=== PATIENT | female | born 1950 | race Caucasian/White ===

== ENCOUNTER 2017-03-18 18:00 | Outpatient (CLI) | payer MEDICARE | END 2017-03-18 18:01 | disposition home or self-care (01) | DX: R68.89 Other general symptoms and signs (principal) ==

== ENCOUNTER 2017-05-01 11:03 | Outpatient (CLI) | payer MEDICARE ==
--- NOTE | 2017-05-06 17:19 | Mammography Report ---
DIGITAL SCREENING MAMMOGRAM: 05/01/2017 CLINICAL INDICATION: A 66-year-old nulliparous patient, for screening. COMPARISON: 12/2015, 11/2014, 11/2013, 10/2012, 09/2011, 08/2010, 08/2009, 05/2008, 04/2007. TECHNIQUE: Routine CC and MLO projections were obtained of the breasts. Bilateral laterally exaggera marlon craniocaudal views. FINDINGS: The breasts again demonstrate heterogeneously dense fibroglandular parenchyma bilaterally. Coarse and punctate, typically benign calcifications are present. No suspicious masses, clustered mi crocalcifications, or regions of architectural distortion are identified. IMPRESSION: BENIGN FINDINGS. RECOMMENDATION: ROUTINE ANNUAL SCREENING UNLESS OTHERWISE CLINICALLY INDICATED. BIRADS CATEGORY 2-BENIGN FINDINGS. STANDARD QUALIFYING STATEMENTS 1. This examination was reviewed with the aid of Computer-Aided Detection (CAD). 2. A negative or benign imaging report should not delay biopsy if clinically suspicious findings are present. Consider surgical consultation if warranted. More than 5% of cancers are not identified by i maging. 3. Dense breasts may obscure an underlying neoplasm. JOB #: [id number] EXT JOB #:[id number]
== END 2017-05-01 11:04 | disposition home or self-care (01) ==
LOC: DI.N 11:03
PROVIDERS: ATTEND Physician Assistant Medical
DX: Z12.31 Encounter for screening mammogram for malignant neoplasm of breast (principal)
CPT/HCPCS: 77067

== ENCOUNTER 2017-05-20 08:00 | Outpatient (CLI) | payer MEDICARE ==
[2017-05-20 13:31] LABS: BASOPHILS % (AUTO) 0.6 %; EOSINOPHILS # (AUTO) 0.1 10^3/uL (0.0-0.7); EOSINOPHILS % (AUTO) 1.6 %; LYMPHOCYTES # (AUTO) 2.2 10^3/uL (1.5-3.5); MEAN CORPUSCULAR HEMOGLOBIN 32.1 pg (27.0-31.0); MEAN CORPUSCULAR HGB CONC 33.5 g/dL (32.0-36.0); MEAN CORPUSCULAR VOLUME 95.9 fL (81.0-99.0); MEAN PLATELET VOLUME 8.3 fL (7.9-10.8); MONOCYTES # (AUTO) 0.3 10^3/uL (0.0-1.0); MONOCYTES % (AUTO) 7.6 %; NEUTROPHILS # (AUTO) 1.6 10^3/uL (1.5-6.6); NEUTROPHILS % (AUTO) 38.2 %; NUCLEATED RED BLOOD CELLS AUTO 0.1 /100WBC; RED BLOOD COUNT 4.38 10^6/uL (4.20-5.40); RED CELL DISTRIBUTION WIDTH 12.2 % (12.0-15.0); UNCORRECTED WHITE BLOOD COUNT 4.3 x10^3/uL; WHITE BLOOD COUNT 4.3 x10^3/uL (4.8-10.8)
[2017-05-20 13:33] LABS: ALBUMIN/GLOBULIN RATIO 1.6 (1.0-2.2); BILIRUBIN,TOTAL 1.1 mg/dL (0.2-1.0); BUN - BLOOD UREA NITROGEN 16 mg/dL (6-20); CALCIUM 9.4 mg/dL (8.5-10.3); CARBON DIOXIDE - CO2 28 mmol/L (21-32); CHLORIDE 102 mmol/L (101-111); CHOLESTEROL 212 mg/dL; CREATININE 0.8 mg/dL (0.4-1.0); GFR - MDRD 71 (>89); GLUCOSE 92 mg/dL (70-100); HDL CHOLESTEROL 106 mg/dL; LDL/HDL RATIO 0.9 (<4.4); POTASSIUM 4.2 mmol/L (3.5-5.0); SODIUM 139 mmol/L (135-145); TOTAL PROTEIN 7.2 g/dL (6.7-8.2); TRIGLYCERIDES 69 mg/dL; VLDL CHOLESTEROL 14 mg/dL
== END 2017-05-20 08:01 | disposition home or self-care (01) ==
LOC: LAB.WCP 08:00
PROVIDERS: ATTEND Physician Assistant Medical
DX: Z00.00 Encounter for general adult medical examination without abnormal findings (principal); J30.9 Allergic rhinitis, unspecified
CPT/HCPCS: 36415; 80053; 80061; 85025

== ENCOUNTER 2017-10-08 09:12 | Outpatient (CLI) | payer MEDICARE ==
--- NOTE | 2017-10-08 11:39 | XRAY Report ---
BILATERAL HIPS AND PELVIS: 10/08/2017 CLINICAL INDICATION: Bilateral hip pain. FINDINGS: Frontal view of the hips and pelvis and bilateral frogleg lateral views of the hips demons trate mild bilateral osteoarthritis. There is no evidence of acute fracture or dislocation. No radi opaque foreign body is seen in the soft tissues. IMPRESSION: MILD BILATERAL HIP OSTEOARTHRITIS. JOB #: [id number] EXT JOB #:[id number]
--- NOTE | 2017-10-08 11:40 | XRAY Report ---
COMPLETE LUMBAR SPINE: 10/08/2017 CLINICAL INDICATION: Chronic low back pain. FINDINGS: AP, lateral, oblique, coned-down views of the lumbar spine demonstrate moderate degenerati ve disc and facet disease, with minimal degenerative anterolisthesis of L4 on L5. There is no eviden ce of compression fracture. The bowel gas pattern is normal. IMPRESSION: MODERATE DEGENERATIVE CHANGES. JOB #: [id number] EXT JOB #:[id number]
== END 2017-10-08 09:13 | disposition home or self-care (01) ==
LOC: DI.N 09:12
PROVIDERS: ATTEND Physician Assistant Medical
DX: M51.36 Other intervertebral disc degeneration, lumbar region (principal); M47.896 Other spondylosis, lumbar region; M43.16 Spondylolisthesis, lumbar region; M16.0 Bilateral primary osteoarthritis of hip
CPT/HCPCS: 72110; 73522

== ENCOUNTER 2018-01-22 10:10 | Outpatient (CLI) | payer MEDICARE ==
--- NOTE | 2018-01-22 15:36 | DEXA Report ---
DEXA SCAN: 01/22/2018 CLINICAL INDICATION: Postmenopausal. TECHNIQUE: Dual energy x-ray absorptiometry (DXA) was performed on a [email or web address] system. Regions measured are the AP spine, femoral neck, and, if needed, forearm. COMPARISON: None. In accordance with the International Society for Clinical Densitometry (ISCD) guidelines, data from previous exams may be reanalyzed using current recommendations and techniques. This is done to allow a more accurate basis for comparison with the current study. FINDINGS The data for the lumbar spine is as follows: REGION BMD (g/cm/cm) T-SCORE Z-SCORE L1 0.979 -1.3 0.3 L2 0.959 -2.0 -0.4 L3 0.951 -2.1 -0.5 L4 1.042 -1.3 0.3 L2-L4 0.987 -1.8 -0.2 NOTE: All evaluable vertebrae are used for classification. The data for the hip is as follows: REGION BMD (g/cm/cm) T-SCORE Z-SCORE Neck 0.800 -1.7 -0.1 TOTAL 0.848 -1.3 0.1 NOTE: The femoral neck or total proximal femur, whichever is lowest, is used for classification. IMPRESSION THE WHO CLASSIFICATION BASED ON THE INTERNATIONAL REFERENCE STANDARD IS OSTEOPENIA. THE FRACTURE RISK IS INCREASED. RECOMMENDATION: Patients with diagnosis of osteoporosis or osteopenia should have regular bone mineral density assessment. For those eligible for Medicare, routine testing is allowed once every 2 years. Testing frequency can be increased for patients who have rapidly progressing disease or for those who are receiving medical therapy to restore bone mass. COMMENT World Health Organization (WHO) definitions for osteoporosis and osteopenia: NORMAL BMD: T-score at 1.0 or higher, fracture risk is low. OSTEOPENIA BMD: T-score between 1.0 and -2.5, fracture risk is increased. OSTEOPOROSIS BMD: T-score at 2.5 or lower, fracture risk high. National Osteoporosis Foundation recommends: 1. Obtain adequate dietary calcium (at least 1200 mg per day) and vitamin D (400 -800 international units per day). 2. Participate, as appropriate, in regular weightbearing and muscle- strengthening exercise. 3. Avoid tobacco use and reduce alcohol and caffeine intake. 4. For more detailed information see the website at www.NOF.org. TD: 01/22/2018 12:08 JARED
== END 2018-01-22 10:11 | disposition home or self-care (01) ==
LOC: DI 10:10
PROVIDERS: ATTEND Physician Assistant Medical
DX: M85.89 Other specified disorders of bone density and structure, multiple sites (principal)
CPT/HCPCS: 77080

== ENCOUNTER 2018-05-13 17:00 | Outpatient (CLI) | payer MEDICARE | END 2018-05-13 17:01 | disposition home or self-care (01) | LOC: LAB.R 17:00 | PROVIDERS: ATTEND Family Medicine | DX: R35.0 Frequency of micturition (principal); N76.0 Acute vaginitis | CPT/HCPCS: 87086; 87480; 87510; 87660 ==

== ENCOUNTER 2018-05-28 11:00 | Outpatient (CLI) | payer MEDICARE ==
[2018-05-28 18:50] LABS: BASOPHILS % (AUTO) 0.7 %; EOSINOPHILS % (AUTO) 1.3 %; HGB - HEMOGLOBIN 13.4 g/dL (12.0-16.0); LYMPHOCYTES # (AUTO) 1.9 10^3/uL (1.5-3.5); LYMPHOCYTES % (AUTO) 53.4 %; MEAN CORPUSCULAR HGB CONC 33.4 g/dL (32.0-36.0); MEAN CORPUSCULAR VOLUME 98.9 fL (81.0-99.0); MEAN PLATELET VOLUME 8.4 fL (7.9-10.8); MONOCYTES # (AUTO) 0.3 10^3/uL (0.0-1.0); MONOCYTES % (AUTO) 8.1 %; NEUTROPHILS # (AUTO) 1.3 10^3/uL (1.5-6.6); NEUTROPHILS % (AUTO) 36.5 %; PLT - PLATELET COUNT 193 10^3/uL (130-450); RED BLOOD COUNT 4.05 10^6/uL (4.20-5.40); RED CELL DISTRIBUTION WIDTH 13.5 % (12.0-15.0); WHITE BLOOD COUNT 3.6 x10^3/uL (4.8-10.8)
[2018-05-28 19:11] LABS: ALBUMIN 3.8 g/dL (3.2-5.5); ALBUMIN/GLOBULIN RATIO 1.2 (1.0-2.2); ALKALINE PHOSPHATASE 58 IU/L (42-121); ALT ALANINE AMINOTRANSFERASE 26 IU/L (10-60); AST ASPARTATE AMINOTRANSFERASE 22 IU/L (10-42); BILIRUBIN,TOTAL 0.7 mg/dL (0.2-1.0); BUN - BLOOD UREA NITROGEN 15 mg/dL (6-20); CALCIUM 9.6 mg/dL (8.5-10.3); CARBON DIOXIDE - CO2 26 mmol/L (21-32); CHLORIDE 103 mmol/L (101-111); CHOL/HDL RATIO 1.5 (<4.4); CHOLESTEROL 167 mg/dL; CREATININE 0.6 mg/dL (0.4-1.0); GFR - MDRD 99 (>89); GLUCOSE 98 mg/dL (70-100); HDL CHOLESTEROL 109 mg/dL; LDL CHOLESTEROL,CALCULATED 48 mg/dL; LDL/HDL RATIO 0.4 (<4.4); SODIUM 137 mmol/L (135-145); TOTAL PROTEIN 6.9 g/dL (6.7-8.2); VLDL CHOLESTEROL 10 mg/dL
== END 2018-05-28 11:01 | disposition home or self-care (01) ==
LOC: LAB.WCP 11:00
PROVIDERS: ATTEND Family Medicine
DX: R03.0 Elevated blood-pressure reading, without diagnosis of hypertension (principal); E78.5 Hyperlipidemia, unspecified; Z13.29 Encounter for screening for other suspected endocrine disorder
CPT/HCPCS: 36415; 80053; 80061; 83721; 84443; 85025

== ENCOUNTER 2018-05-31 17:30 | Emergency (ER) | payer MEDICARE ==
[2018-05-31 18:09] LABS: BILIRUBIN,URINE NEGATIVE (NEGATIVE); GLUCOSE, URINE (UA) NEGATIVE (NEGATIVE); KETONES,URINE (UA) 15 mg/dL (NEGATIVE); LEUKOCYTE ESTERASE, URINE TRACE (NEGATIVE); NITRITE,URINE NEGATIVE (NEGATIVE); OCCULT BLOOD,URINE NEGATIVE (NEGATIVE); PH,URINE 8.5 PH (5.0-7.5); PROTEIN,URINE NEGATIVE (NEGATIVE); UROBILINOGEN,URINE 0.2 (NORMAL) E.U./dL (NORMAL)
[2018-05-31 18:11] LABS: CLARITY,URINE CLEAR (CLEAR)
[2018-05-31 18:12] LABS: BACTERIA,URINE None Seen /HPF (None Seen); RBC,URINE None Seen /HPF (0-5); SQUAMOUS EPITHELIAL CELL,UR RARE Squamous (<= Few)
[2018-05-31] MEDS ORDERED: SODIUM CHLORIDE 0.9% 1,000 ML IV ONE (19:27)
[2018-05-31 19:31] VITALS: BP 129/82
[2018-05-31 19:37] LABS: BASOPHILS % (AUTO) 0.4 %; EOSINOPHILS % (AUTO) 0.5 %; HGB - HEMOGLOBIN 13.5 g/dL (12.0-16.0); LYMPHOCYTES # (AUTO) 0.2 10^3/uL (1.5-3.5); LYMPHOCYTES % (AUTO) 2.5 %; MEAN CORPUSCULAR HEMOGLOBIN 32.4 pg (27.0-31.0); MEAN CORPUSCULAR HGB CONC 33.4 g/dL (32.0-36.0); MEAN CORPUSCULAR VOLUME 97.2 fL (81.0-99.0); MEAN PLATELET VOLUME 7.2 fL (7.9-10.8); MONOCYTES # (AUTO) 0.3 10^3/uL (0.0-1.0); MONOCYTES % (AUTO) 4.2 %; NEUTROPHILS # (AUTO) 6.6 10^3/uL (1.5-6.6); NEUTROPHILS % (AUTO) 92.4 %; PLT - PLATELET COUNT 189 10^3/uL (130-450); RED BLOOD COUNT 4.17 10^6/uL (4.20-5.40); RED CELL DISTRIBUTION WIDTH 12.9 % (12.0-15.0); WHITE BLOOD COUNT 7.2 x10^3/uL (4.8-10.8)
--- NOTE | 2018-05-31 19:39 | ED Physician Documentation ---
History of Present Illness - Stated complaint Stated Complaint: WEAKNESS AND TREMORS - Chief complaint Chief Complaint: General - History obtained from History obtained from: Patient, Family - History of Present Illness Timing: Chronic - Additonal information Additional information: Patient is a 68 year old female with a history of essential tremor who is presenting to the emergency department for generalized weakness and worsening tremor. Patient states that her symptoms come and go and tend to be worse on the right. states that the she felt ok two days ago and was normal but today she seemed worse. Patient has not been diagnosed with parkinsons at this point. Review of Systems Constitutional: denies: Fever, Chills Eyes: denies: Loss of vision, Photophobia Ears: reports: Reviewed and negative Cardiac: denies: Chest pain / pressure GI: denies: Nausea, Vomiting Musculoskeletal: denies: Extremity pain Neurologic: reports: Generalized weakness, Focal weakness. denies: Numbness, Difficulty speaking, Syncope, Seizure Immunocompromised: denies: Immunocompromised PD PAST MEDICAL HISTORY - Past Medical History Cardiovascular: None Respiratory: None Endocrine/Autoimmune: None GI: GERD, Colon polyps : None HEENT: None Psych: None Musculoskeletal: Osteoarthritis Derm: None - Past Surgical History Past Surgical History: Yes - Present Medications Home Medications: Ambulatory Orders Medication Instructions Recorded Confirmed Ascorbic Acid [Vitamin C] 2,000 mg PO DAILY 07/23/16 07/23/16 Aspirin [Aspir-Low] 81 mg PO DAILY 07/23/16 07/23/16 Calcium Carbonate 500 mg PO BID 07/23/16 07/23/16 Multivitamin [Theragran] 1 tab PO DAILY 07/23/16 07/23/16 Naproxen Sodium [All Day Pain 220 mg PO .ASDIRECTED 07/23/16 07/23/16 Relief] [place]-3/Dha/Epa/Fish Oil [Fish Oil 1,000 mg PO BID 07/23/16 07/23/16 Conc 1,000 mg Softgel] Vit A/C/E AC/Znox/Cupric Oxide 1 tab PO DAILY 07/23/16 07/23/16 [Eye Vitamin-Minerals Tablet] - Allergies Allergies/Adverse Reactions: Allergies Allergy/AdvReac Type Severity Reaction Status Date / Time Sulfa (Sulfonamide Allergy Hives Verified 05/31/18 17:40 Antibiotics) - Social History Does the pt smoke?: No Smoking Status: Never smoker Does the pt drink ETOH?: No Does the pt have substance abuse?: No - Immunizations Immunizations are current?: Yes - POLST Patient has POLST: No PD ED PE NORMAL - Vitals Vital signs reviewed: Yes - General General: Alert and oriented X 3 - HEENT HEENT: Atraumatic - Cardiac Cardiac: RRR - Respiratory Respiratory: No respiratory distress - Derm Derm: Normal color - Extremities Extremities: No deformity PD ED PE EXPANDED - Neuro Neuro: Alert and Oriented X 3, Normal motor, Normal Speech, Normal finger nose ( normal on the left and slightly worse on the right ), Other (5/5 upper and lower extremity bilaterally, but slightly weaker on the right) Results - Vitals Vitals: Vital Signs - 24 hr 05/31/18 05/31/18 05/31/18 17:38 19:29 20:51 Temperature 37.1 C Heart Rate 78 78 70 Respiratory 18 16 16 Rate Blood Pressure 127/62 129/82 H O2 Saturation 97 96 98 Oxygen O2 Source Room air - Labs Labs: Laboratory Tests 05/31/18 05/31/18 05/31/18 18:00 19:34 19:34 WBC 7.2 RBC 4.17 L Hgb 13.5 Hct 40.6 MCV 97.2 MCH 32.4 H MCHC 33.4 RDW 12.9 Plt Count 189 MPV 7.2 L Neut # (Auto) 6.6 Lymph # (Auto) 0.2 L [place] # (Auto) 0.3 Eos # (Auto) 0.0 Baso # (Auto) 0.0 Absolute Nucleated RBC 0.00 Nucleated RBC % 0.0 Sodium 134 L Potassium 3.7 Chloride 101 Carbon Dioxide 25 Anion Gap 8.0 BUN 13 Creatinine 0.7 Estimated GFR (MDRD) 83 L Glucose 126 H Calcium 9.0 Phosphorus 2.6 Magnesium 1.6 L Total Bilirubin 0.8 AST 17 ALT 22 Alkaline Phosphatase 59 Total Protein 6.6 L Albumin 3.7 Globulin 2.9 Albumin/Globulin Ratio 1.3 Lipase 23 Urine Color YELLOW Urine Clarity CLEAR Urine pH 8.5 H Ur Specific [place] 1.015 Urine Protein NEGATIVE Urine Glucose (UA) NEGATIVE Urine Ketones 15 H Urine Occult Blood NEGATIVE Urine Nitrite NEGATIVE Urine Bilirubin NEGATIVE Urine Urobilinogen 0.2 (NORMAL) Ur Leukocyte Esterase TRACE H Urine RBC None Seen Urine WBC 0-3 Ur Squamous Epith Cells RARE Squamous Urine Bacteria None Seen Ur Microscopic Review INDICATED Urine Culture Comments INDICATED - Rads (name of study) ct head Radiology: Final report received (no acute abnormalities, see full report) PD MEDICAL DECISION MAKING - ED course Complexity details: reviewed old records, reviewed results, re-evaluated patient , considered differential, d/w patient ED course: patient was seen and examined at bedside. labs were drawn and urine was collected. Imaging was ordered. when patient returned the results were reviewed. there were no acute abnormalities appreciated. while patient would likely benefit from MRI, it was not emergent at this time. patient and family were made aware of the findings and were stable for discharge with outpatient follow up. - Sepsis Event Vital Signs: Vital Signs - 24 hr 05/31/18 05/31/18 05/31/18 17:38 19:29 20:51 Temperature 37.1 C Heart Rate 78 78 70 Respiratory 18 16 16 Rate Blood Pressure 127/62 129/82 H O2 Saturation 97 96 98 Oxygen O2 Source Room air Departure - Departure Disposition: 01 Home, Self Care Clinical Impression: Generalized muscle ache Condition: Good Instructions: ED Fall Dizziness Weakn Balance Follow-Up: Nola Elkins PA-C [Primary Care Provider] - Tomorrow Comments: Your diagnostics today were within normal limits. There is no acute abnormalities on your blood work. you should follow up with your doctor tomorrow and schedule a follow up MRI. You may return to the emergency department at any time for new, worsening or uncontrollable symptoms. Discharge Date/Time: 05/31/18 20:54
--- NOTE | 2018-05-31 19:52 | CT Report ---
Procedure Date: 05/31/2018 Accession Number: [id number] / [id number] Procedure: CT - Head W/O CPT Code: FULL RESULT: EXAM: CT HEAD EXAM DATE: 05/31/2018 07:08 PM. CLINICAL HISTORY: Right sided weakness. COMPARISON: 07/17/2008 10:42 AM. TECHNIQUE: Multiaxial CT images were obtained from the foramen magnum to the vertex. Reformats: Coronal. IV contrast: None. In accordance with CT protocol optimization, one or more of the following dose reduction techniques were utilized for this exam: automated exposure control, adjustment of mA and/or KV based on patient size, or use of iterative reconstructive technique. FINDINGS: Parenchyma: No intraparenchymal hemorrhage. No evidence of mass, midline shift or CT findings of acute infarction. Batista-white differentiation is distinct. Diffuse mild chronic microangiopathic white matter changes are evident. Extraaxial Spaces: Normal for age. No subdural or epidural collections identified. Ventricles: The ventricles and cortical sulci are enlarged, consistent with age-related tissue loss. Sinuses: Imaged paranasal sinuses, orbits, and mastoids show no significant abnormality. Bones: No evidence of fracture or calvarial defect. Other: None. IMPRESSION: Mild senescent changes without evidence of acute intracranial abnormality. RADIA
[2018-05-31 19:53] LABS: ALBUMIN 3.7 g/dL (3.2-5.5); ALBUMIN/GLOBULIN RATIO 1.3 (1.0-2.2); BILIRUBIN,TOTAL 0.8 mg/dL (0.2-1.0); CREATININE 0.7 mg/dL (0.4-1.0); MAGNESIUM 1.6 mg/dL (1.7-2.8); PHOSPHORUS 2.6 mg/dL (2.5-4.6); TOTAL PROTEIN 6.6 g/dL (6.7-8.2)
== END 2018-05-31 20:54 | disposition home or self-care (01) ==
LOC: ED 17:30
DX: M79.1 Myalgia (principal)
CPT/HCPCS: 36415; 70450; 80053; 81001; 81003; 83690; 83735; 84100; 85025; 87086; 99283; 99284

== ENCOUNTER 2018-06-01 05:55 | Outpatient (CLI) | payer MEDICARE | END 2018-06-01 05:56 | disposition critical access hospital (66) | LOC: EMS 05:55 | PROVIDERS: ATTEND Surgery | DX: R53.1 Weakness (principal); R50.9 Fever, unspecified | CPT/HCPCS: A0425; A0429 ==

== ENCOUNTER 2018-06-01 06:11 | Emergency (ER) | payer MEDICARE ==
--- NOTE | 2018-06-01 07:10 | ED Physician Documentation ---
History of Present Illness - Stated complaint Stated Complaint: WEAKNESS - Chief complaint Chief Complaint: Neuro - History obtained from History obtained from: Patient, Family - History of Present Illness Timing: How many days ago (5) - Additonal information Additional information: 68-year-old female with a 6 month history of slowly increasing weakness has developed a saultatory increase in her weakness. She collapsed in the bathroom and was not able to get up yesterday. This morning she is having a hard time getting out of bed. She has had a recent UTI, was on some macrobid for 7 days and has changed to metornidazole. She has broken out in a rash over her legs and arms consistent with a drug eruption. She has an essential tremor for the past year and has been on propranalol. She has a family history of Parkinsons in her uncle and cousin. Review of Systems Constitutional: reports: Fever Eyes: denies: Decreased vision Ears: denies: Ear pain Nose: denies: Rhinorrhea / runny nose, Congestion Throat: denies: Sore throat Cardiac: denies: Chest pain / pressure, Palpitations Respiratory: denies: Dyspnea, Cough GI: reports: Constipation. denies: Abdominal Pain, Nausea, Vomiting : denies: Dysuria, Frequency Skin: denies: Rash Musculoskeletal: denies: Neck pain, Back pain, Extremity pain Neurologic: reports: Generalized weakness. denies: Focal weakness, Numbness, Difficulty speaking, Confused, Altered mental status, Headache, Head injury, LOC PD PAST MEDICAL HISTORY - Past Medical History Past Medical History: Yes Cardiovascular: None Respiratory: None Neuro: None Endocrine/Autoimmune: None GI: GERD, Colon polyps : None HEENT: None Psych: None Musculoskeletal: Osteoarthritis Derm: None - Past Surgical History Past Surgical History: Yes - Present Medications Home Medications: Ambulatory Orders Medication Instructions Recorded Confirmed Ascorbic Acid [Vitamin C] 2,000 mg PO DAILY 07/23/16 07/23/16 Aspirin [Aspir-Low] 81 mg PO DAILY 07/23/16 07/23/16 Calcium Carbonate 500 mg PO BID 07/23/16 07/23/16 Multivitamin [Theragran] 1 tab PO DAILY 07/23/16 07/23/16 Naproxen Sodium [All Day Pain 220 mg PO .ASDIRECTED 07/23/16 07/23/16 Relief] [place]-3/Dha/Epa/Fish Oil [Fish Oil 1,000 mg PO BID 07/23/16 07/23/16 Conc 1,000 mg Softgel] Vit A/C/E AC/Znox/Cupric Oxide 1 tab PO DAILY 07/23/16 07/23/16 [Eye Vitamin-Minerals Tablet] Carbidopa/Levodopa 25/100 [Sinemet 0.5 tab PO TID #30 tablet 06/01/18 25 mg/100 mg] Ciprofloxacin HCl [Cipro] 500 mg PO BID #14 tablet 06/01/18 - Allergies Allergies/Adverse Reactions: Allergies Allergy/AdvReac Type Severity Reaction Status Date / Time Sulfa (Sulfonamide Allergy Hives Verified 06/01/18 06:17 Antibiotics) - Social History Does the pt smoke?: No Smoking Status: Never smoker Does the pt drink ETOH?: No Does the pt have substance abuse?: No - Immunizations Immunizations are current?: Yes - POLST Patient has POLST: No PD ED PE NORMAL - Vitals Vital signs reviewed: Yes (normal ) - General General: Alert and oriented X 3, No acute distress, Well developed/nourished, Other (pleasant 68 y/o female in no distress. There is a slight delay in execution of motor commands) - HEENT HEENT: Atraumatic, PERRL, EOMI, Ears normal, Moist mucous membranes, Pharynx benign, Dentition benign - Neck Neck: Supple, no meningeal sign, No bony TTP - Cardiac Cardiac: RRR, No murmur - Respiratory Respiratory: No respiratory distress, Clear bilaterally - Abdomen Abdomen: Soft, Non tender - Back Back: No CVA TTP, No spinal TTP - Derm Derm: Normal color, Warm and dry, Other (There is a fine raised papular rash over the legs and arms. Looks like a drug eruption. ) - Extremities Extremities: No deformity, Normal ROM s pain, No edema - Neuro Neuro: Alert and oriented X 3, emr analyst 2-12 intact, No motor deficit, No sensory deficit, Normal speech Eye Opening: Spontaneous Motor: Obeys Commands Verbal: Oriented GCS Score: 15 - Psych Psych: Normal mood, Normal affect Results - Vitals Vitals: Vital Signs - 24 hr 06/01/18 06/01/18 06/01/18 06:13 06:41 07:27 Temperature 36.8 C 37.3 C Heart Rate 63 69 68 Respiratory 15 16 15 Rate Blood Pressure 112/68 115/64 104/61 O2 Saturation 92 95 96 06/01/18 06/01/18 06/01/18 08:00 11:00 12:19 Temperature 36.4 C L Heart Rate 67 68 68 Respiratory 15 15 Rate Blood Pressure 103/64 110/64 96/58 L O2 Saturation 97 94 97 Oxygen O2 Source Room air - EKG (time done) 0653 Rate: Rate (enter#) (70) Rhythm: NSR Ischemia: Normal ST segments Compare to prior EKG: Old EKG unavailable Computer interpretation: Agree with computer - Labs Labs: Laboratory Tests 06/01/18 06/01/18 06/01/18 07:05 07:05 07:05 WBC 6.2 RBC 3.96 L Hgb 13.0 Hct 38.0 MCV 96.1 MCH 33.0 H MCHC 34.3 RDW 12.8 Plt Count 172 MPV 7.7 L Neut # (Auto) 5.6 Lymph # (Auto) 0.3 L Kay # (Auto) 0.3 Eos # (Auto) 0.1 Baso # (Auto) 0.0 Absolute Nucleated RBC 0.00 Nucleated RBC % 0.0 Sodium 135 Potassium 3.5 Chloride 105 Carbon Dioxide 23 Anion Gap 7.0 BUN 11 Creatinine 0.6 Estimated GFR (MDRD) 99 Glucose 121 H Calcium 8.7 Magnesium 1.7 Total Bilirubin 0.7 AST 19 ALT 20 Alkaline Phosphatase 56 Total Creatine Kinase 214 Troponin I < 0.04 Total Protein 6.4 L Albumin 3.3 Globulin 3.1 Albumin/Globulin Ratio 1.1 Lipase 22 Urine Color Urine Clarity Urine pH Ur Specific [place] Urine Protein Urine Glucose (UA) Urine Ketones Urine Occult Blood Urine Nitrite Urine Bilirubin Urine Urobilinogen Ur Leukocyte Esterase Urine RBC Urine WBC Urine WBC Clumps Ur Epithelial Cells Ur Squamous Epith Cells Urine Bacteria Urine Mucus Ur Microscopic Review Urine Culture Comments 06/01/18 07:47 WBC RBC Hgb Hct MCV MCH MCHC RDW Plt Count MPV Neut # (Auto) Lymph # (Auto) Kay # (Auto) Eos # (Auto) Baso # (Auto) Absolute Nucleated RBC Nucleated RBC % Sodium Potassium Chloride Carbon Dioxide Anion Gap BUN Creatinine Estimated GFR (MDRD) Glucose Calcium Magnesium Total Bilirubin AST ALT Alkaline Phosphatase Total Creatine Kinase Troponin I Total Protein Albumin Globulin Albumin/Globulin Ratio Lipase Urine Color YELLOW Urine Clarity CLEAR Urine pH 6.0 Ur Specific [place] 1.025 Urine Protein NEGATIVE Urine Glucose (UA) NEGATIVE Urine Ketones 15 H Urine Occult Blood TRACE-INTA Urine Nitrite NEGATIVE Urine Bilirubin NEGATIVE Urine Urobilinogen 0.2 (NORMAL) Ur Leukocyte Esterase TRACE H Urine RBC 0-5 Urine WBC >25 H Urine WBC Clumps PRESENT Ur Epithelial Cells FEW Transitional Ur Squamous Epith Cells NONE SEEN Urine Bacteria Rare Urine Mucus Marked Strands Ur Microscopic Review INDICATED Urine Culture Comments INDICATED - Rads (name of study) 2 veiw chest Radiology: Prelim report reviewed (Impression: Bibasilar atelectasis or scarring. COPD), EMP read indepedently, See rad report Procedures - IVC sono (time) 0740 Bedside IVC sono: IVC measures (cm) (1.49), Euvolemia PD MEDICAL DECISION MAKING - ED course Complexity details: reviewed old records, reviewed results, re-evaluated patient , considered differential, d/w patient, d/w family ED course: 68-year-old female with a six-month history of increasing weakness has now reached a critical weakness and is unable to get herself out of bed. My concern is for presentation of Parkinson's. Here in the emergency department today she does have what appears to be a drug rash related to her Macrobid and she is administered dexamethasone 10 mg orally. This patient demonstrates numerous findings consistent with progression of Parkinson's disease. She has had a fall about 3 weeks ago and now has progressive weakness. After scoring the patient's motor exam she is administered carbidopa levodopa trial. This is a positive trial with dramatic improvement in nearly all of her symptom complexes. We will treat with carbidopa levodopa at a starting dose and she will have follow up with Saritha Elkins for referral to neuro. There is also the issue of medication reaction and UTI. She has been on both macrobid and metronidizole and today we have obtained a specimen and it shows infection and she is administered rocephin and we will start cipro. At the conclusion of the visit the drug eruption seen earlier has faded extensively after a dose of decadron. All issues have been relayed to her primary. - Sepsis Event Vital Signs: Vital Signs - 24 hr 06/01/18 06/01/18 06/01/18 06:13 06:41 07:27 Temperature 36.8 C 37.3 C Heart Rate 63 69 68 Respiratory 15 16 15 Rate Blood Pressure 112/68 115/64 104/61 O2 Saturation 92 95 96 06/01/18 06/01/18 06/01/18 08:00 11:00 12:19 Temperature 36.4 C L Heart Rate 67 68 68 Respiratory 15 15 Rate Blood Pressure 103/64 110/64 96/58 L O2 Saturation 97 94 97 Oxygen O2 Source Room air Departure - Departure Disposition: Home, Self Care Clinical Impression: Parkinson disease Urinary tract infection Qualifiers: Urinary tract infection type: acute cystitis Hematuria presence: without hematuria Qualified Code(s): N30.00 - Acute cystitis without hematuria Condition: Stable Instructions: Parkinson Disease Dc, ED UTI Cystitis Female Follow-Up: Nola Elkins PA-C [Primary Care Provider] - Prescriptions: Carbidopa/Levodopa 25/100 [Sinemet 25 mg/100 mg] 0.5 tab PO TID #30 tablet Ciprofloxacin HCl [Cipro] 500 mg PO BID #14 tablet Discharge Date/Time: 06/01/18 12:20
[2018-06-01 07:25] LABS: BASOPHILS % (AUTO) 0.3 %; EOSINOPHILS # (AUTO) 0.1 10^3/uL (0.0-0.7); EOSINOPHILS % (AUTO) 0.8 %; LYMPHOCYTES # (AUTO) 0.3 10^3/uL (1.5-3.5); LYMPHOCYTES % (AUTO) 4.2 %; MEAN CORPUSCULAR HGB CONC 34.3 g/dL (32.0-36.0); MEAN CORPUSCULAR VOLUME 96.1 fL (81.0-99.0); MEAN PLATELET VOLUME 7.7 fL (7.9-10.8); MONOCYTES # (AUTO) 0.3 10^3/uL (0.0-1.0); MONOCYTES % (AUTO) 4.7 %; NEUTROPHILS # (AUTO) 5.6 10^3/uL (1.5-6.6); PLT - PLATELET COUNT 172 10^3/uL (130-450); RED BLOOD COUNT 3.96 10^6/uL (4.20-5.40); RED CELL DISTRIBUTION WIDTH 12.8 % (12.0-15.0); WHITE BLOOD COUNT 6.2 x10^3/uL (4.8-10.8)
[2018-06-01 07:27] LABS: ALBUMIN 3.3 g/dL (3.2-5.5); ALBUMIN/GLOBULIN RATIO 1.1 (1.0-2.2); BILIRUBIN,TOTAL 0.7 mg/dL (0.2-1.0); CALCIUM 8.7 mg/dL (8.5-10.3); CREATININE 0.6 mg/dL (0.4-1.0); MAGNESIUM 1.7 mg/dL (1.7-2.8); TOTAL PROTEIN 6.4 g/dL (6.7-8.2)
[2018-06-01] MEDS ORDERED: DEXAMETHASONE 10 MG/ML VIAL PO STA (07:39)
[2018-06-01] MEDS ORDERED: SODIUM CHLORIDE 0.9% 1,000 ML IV ONE (07:49)
--- NOTE | 2018-06-01 07:49 | XRAY Report ---
Procedure Date: 06/01/2018 Accession Number: [id number] / [id number] Procedure: XR - Chest 2 View X-Ray CPT Code: 10102 FULL RESULT: EXAM: CHEST RADIOGRAPHY EXAM DATE: 06/01/2018 07:25 AM. CLINICAL HISTORY: Weakness. COMPARISON: 07/23/2016. TECHNIQUE: 2 views. FINDINGS: Lungs/Pleura: Bibasilar atelectasis or scarring. Mild hyperexpansion with increased AP diameter. No pleural effusion. No pneumothorax. Normal volumes. Mediastinum: Heart and mediastinal contours are unremarkable. Other: None. IMPRESSION: 1. Bibasilar atelectasis or scarring. 2. COPD RADIA
[2018-06-01] MEDS ORDERED: CHERRY SYRUP 10 ML UDC PO ONE (08:00)
[2018-06-01] MEDS ORDERED: CARBIDOPA/LEVODOPA 25 MG/250 MG TABLET PO STA (08:23)
[2018-06-01 08:35] LABS: BILIRUBIN,URINE NEGATIVE (NEGATIVE); GLUCOSE, URINE (UA) NEGATIVE (NEGATIVE); KETONES,URINE (UA) 15 mg/dL (NEGATIVE); LEUKOCYTE ESTERASE, URINE TRACE (NEGATIVE); NITRITE,URINE NEGATIVE (NEGATIVE); OCCULT BLOOD,URINE TRACE-INTA (NEGATIVE); PROTEIN,URINE NEGATIVE (NEGATIVE); UROBILINOGEN,URINE 0.2 (NORMAL) E.U./dL (NORMAL)
[2018-06-01 08:43] LABS: CLARITY,URINE CLEAR (CLEAR)
[2018-06-01 08:44] LABS: RBC,URINE 0-5 /HPF (0-5); SQUAMOUS EPITHELIAL CELL,UR NONE SEEN (<= Few); WBC CLUMPS,URINE PRESENT
[2018-06-01 08:45] LABS: BACTERIA,URINE Rare /HPF (None Seen); EPITHELIAL CELLS,UR FEW Transitional /HPF (<= Few); MUCUS,URINE Marked Strands
[2018-06-01] MEDS ORDERED: cefTRIAXone 1 GM in SODIUM CHLORIDE 0.9% MINIBAG 100 ML IV STA (11:13)
[2018-06-01 12:20] VITALS: BP 96/58
== END 2018-06-01 12:20 | disposition home or self-care (01) ==
LOC: EDUNIT# → ED 06:11
DX: G20 Parkinson's disease (principal); N30.90 Cystitis, unspecified without hematuria; L27.1 Localized skin eruption due to drugs and medicaments taken internally; T50.995A Adverse effect of other drugs, medicaments and biological substances, initial encounter
CPT/HCPCS: 36415; 71046; 80053; 81001; 82550; 83690; 83735; 84484; 85025; 87086; 93005; 96361; 96374; 99283; 99284; A9270; 81003

== ENCOUNTER 2018-06-07 14:26 | Outpatient (CLI) | payer MEDICARE ==
--- NOTE | 2018-06-09 07:16 | Mammography Report ---
Procedure Date: 06/07/2018 Accession Number: [id number] / [id number] Procedure: [facility] - Screening Mammo Dig Bilat CPT Code: FULL RESULT: EXAM: Screening Mammo Dig Bilat DATE: 06/07/2018 2:52 PM CLINICAL HISTORY: 68 year-old nulliparous female presents for screening. TECHNIQUE: Bilateral CC and MLO views were obtained. COMPARISON: 05/01/2017, 12/28/2015, 12/08/2014, 12/12/2013. FINDINGS: The breasts demonstrate heterogeneously dense fibroglandular parenchyma bilaterally. Coarse and round benign calcifications are seen in both breasts. No suspicious masses, clustered microcalcifications, or regions of architectural distortion are identified. IMPRESSION: Benign findings RECOMMENDATION: Routine annual screening unless otherwise clinically indicated. BIRADS CATEGORY 2: Benign findings STANDARD QUALIFYING STATEMENTS: 1. This examination was reviewed with the aid of Computer-Aided Detection (CAD). 2. A negative or benign imaging report should not delay biopsy if clinically suspicious findings are present. Consider surgical consultation if warrented. More than 5% of cancers are not identified by imaging. 3. Dense breasts may obscure an underlying neoplasm.
== END 2018-06-07 14:27 | disposition home or self-care (01) ==
LOC: DI 14:26
PROVIDERS: ATTEND Physician Assistant Medical
DX: Z12.31 Encounter for screening mammogram for malignant neoplasm of breast (principal)
CPT/HCPCS: 77067

== ENCOUNTER 2018-06-22 11:15 | Outpatient (CLI) | payer MEDICARE ==
[2018-06-22 19:12] LABS: BILIRUBIN,URINE NEGATIVE (NEGATIVE); GLUCOSE, URINE (UA) NEGATIVE (NEGATIVE); KETONES,URINE (UA) NEGATIVE (NEGATIVE); LEUKOCYTE ESTERASE, URINE NEGATIVE (NEGATIVE); NITRITE,URINE NEGATIVE (NEGATIVE); OCCULT BLOOD,URINE NEGATIVE (NEGATIVE); PROTEIN,URINE NEGATIVE (NEGATIVE); UROBILINOGEN,URINE 0.2 (NORMAL) E.U./dL (NORMAL)
[2018-06-22 19:45] LABS: CLARITY,URINE HAZY (CLEAR)
[2018-06-22 19:49] LABS: AMORPHOUS SEDIMENT,UR Marked /LPF; BACTERIA,URINE Rare /HPF (None Seen); RBC,URINE None Seen /HPF (0-5); SQUAMOUS EPITHELIAL CELL,UR RARE Squamous (<= Few)
== END 2018-06-22 11:16 | disposition home or self-care (01) ==
LOC: LAB.R 11:15
PROVIDERS: ATTEND Physician Assistant Medical
DX: R35.0 Frequency of micturition (principal)
CPT/HCPCS: 81001; 87086

== ENCOUNTER 2018-08-24 08:14 | Outpatient (CLI) | payer MEDICARE ==
[2018-08-24] MEDS ORDERED: GADOBUTROL 7.5 MMOL/7.5 ML VIAL ONE (08:44)
[2018-08-24] MEDS ORDERED: GADOBUTROL 7.5 MMOL/7.5 ML VIAL IVP ONE (09:43)
--- NOTE | 2018-08-24 11:45 | MRI Report ---
Reason: PARKINSON'S DISEASE Procedure Date: 08/24/2018 Accession Number: [id number] / [id number] Procedure: MRI - Brain W/WO CPT Code: FULL RESULT: EXAM: MRI BRAIN WITHOUT AND WITH CONTRAST EXAM DATE: 08/24/2018 09:49 AM. CLINICAL HISTORY: Parkinson disease. Previous history of right-sided weakness. COMPARISON: No previous MRI of the brain. TECHNIQUE: Multiplanar, multisequence T1-weighted and fluid-sensitive MR sequences of the brain were performed. Sequences optimized for routine evaluation. Other: None. IV Contrast: . FINDINGS: Brain Volume: Mild generalized probably age-related cerebral volume loss. Parenchyma: No restricted diffusion to suggest acute or recent ischemic infarct. No cerebral hemorrhage. Negative for mass-effect, midline shift or abnormal subdural fluid collection. Moderately prominent chronic-appearing cerebral white matter disease. In addition to amorphous abnormal T2 hyperintensity in the joshua, there is extensive patchy, nodular and confluent abnormal T2 hyperintensity in the cerebral white matter, predominantly in the deep and periventricular regions. These findings while nonspecific are consistent with aging and chronic small vessel ischemic white matter disease. No abnormal enhancement of the brain and no evidence for intracranial enhancing or space occupying mass. No major dural venous sinus thrombus identified. No cerebral white matter enhancement. Ventricles/Cisterns: No hydrocephalus. No abnormal extra-axial fluid collection or hemorrhage. Orbits: Symmetric and unremarkable. Sella Turcica: No space-occupying mass. IAC: Symmetric and unremarkable. Vasculature: Normal signal flow void is seen in the major arterial structures at the skull base. Sinuses: No acute sinus disease. Bones: No focal pathologic appearing marrow signal changes. Other: None. IMPRESSION: 1. No acute abnormality or enhancing mass. 2. Chronic-appearing white matter disease, likely from aging and chronic microangiopathy. RADIA
--- NOTE | 2018-08-24 11:56 | MRI Report ---
Reason: PARKINSON'S DISEASE Procedure Date: 08/24/2018 Accession Number: [id number] / [id number] Procedure: MRI - Cervical Spine W/O CPT Code: FULL RESULT: EXAM: MRI CERVICAL SPINE WITHOUT CONTRAST EXAM DATE: 08/24/2018 09:12 AM. CLINICAL HISTORY: Parkinson's disease. COMPARISONS: None. TECHNIQUE: Multiplanar, multisequence T1-weighted and fluid-sensitive sequences of the cervical spine without contrast. Other: None. FINDINGS: Neurologic Structures: No signal abnormality in the visualized spinal cord. Alignment: No scoliosis or spondylolisthesis. Bone Marrow: No gross fractures or bone lesions. No marrow edema. Interspace Levels/Facets: No significant stenosis of the cervical central canal or neural foramina. Minimal degenerative disk bulges without significant mass-effect at C4-C5, C5-C6 and C6-C7 levels. No significant intervertebral disk space narrowing. Mild uncinate process spurring left greater than right at the C4-C5 level. Minimal to mild cervical facet arthropathy, most conspicuous for example on the right at C6-C7. Musculature: Normal. No edema or fatty atrophy. Other: The paravertebral and prevertebral soft tissues are normal. IMPRESSION: No acute abnormality. Mild degenerative changes without significant stenosis. Unremarkable appearance of the cervical spinal cord. RADIA
== END 2018-08-24 08:15 | disposition home or self-care (01) ==
LOC: DI 08:14
PROVIDERS: ATTEND Psychiatry & Neurology Neurology
DX: G20 Parkinson's disease (principal)
CPT/HCPCS: 70553; 72141; A9585

== ENCOUNTER 2019-07-05 11:16 | Outpatient (CLI) | payer MEDICARE ==
[2019-07-05 19:06] LABS: BASOPHILS % (AUTO) 0.4 %; EOSINOPHILS % (AUTO) 0.2 %; LYMPHOCYTES # (AUTO) 1.8 10^3/uL (1.5-3.5); LYMPHOCYTES % (AUTO) 38.3 %; MEAN CORPUSCULAR HEMOGLOBIN 31.8 pg (27.0-31.0); MEAN CORPUSCULAR HGB CONC 32.1 g/dL (32.0-36.0); MEAN PLATELET VOLUME 10.4 fL (7.9-10.8); MONOCYTES # (AUTO) 0.4 10^3/uL (0.0-1.0); MONOCYTES % (AUTO) 7.9 %; NEUTROPHILS # (AUTO) 2.5 10^3/uL (1.5-6.6); PLT - PLATELET COUNT 205 10^3/uL (130-450); RED BLOOD COUNT 4.09 10^6/uL (4.20-5.40); RED CELL DISTRIBUTION WIDTH 13.2 % (12.0-15.0); WHITE BLOOD COUNT 4.7 x10^3/uL (4.8-10.8)
[2019-07-05 19:32] LABS: ALBUMIN 4.2 g/dL (3.2-5.5); ALBUMIN/GLOBULIN RATIO 1.4 (1.0-2.2); ALKALINE PHOSPHATASE 55 IU/L (42-121); ALT ALANINE AMINOTRANSFERASE < 10 IU/L (10-60); AST ASPARTATE AMINOTRANSFERASE 20 IU/L (10-42); BILIRUBIN,TOTAL 0.8 mg/dL (0.2-1.0); BUN - BLOOD UREA NITROGEN 13 mg/dL (6-20); CALCIUM 9.2 mg/dL (8.5-10.3); CARBON DIOXIDE - CO2 26 mmol/L (21-32); CHLORIDE 104 mmol/L (101-111); CREATININE 0.7 mg/dL (0.4-1.0); GFR - MDRD 82 (>89); GLUCOSE 84 mg/dL (70-100); SODIUM 140 mmol/L (135-145); TOTAL PROTEIN 7.1 g/dL (6.7-8.2)
== END 2019-07-05 23:59 ==
LOC: LAB.WCP 11:16
PROVIDERS: ATTEND Physician Assistant
DX: R23.3 Spontaneous ecchymoses (principal); R35.0 Frequency of micturition
CPT/HCPCS: 36415; 80053; 85025; 87086

== ENCOUNTER 2019-07-29 10:52 | Outpatient (CLI) | payer MEDICARE ==
--- NOTE | 2019-08-01 17:17 | Mammography Report ---
Reason: SCREENING MAMMO Procedure Date: 07/29/2019 Accession Number: [id number] / [id number] Procedure: MGN - Screening Mammo Dig Bilat CPT Code: FULL RESULT: EXAM: Screening Mammo Dig Bilat DATE: 07/29/2019 11:15 AM CLINICAL HISTORY: Routine screening TECHNIQUE: (B) - Bilateral CC and MLO views were obtained. COMPARISON: 06/07/2018, 05/01/2017, 12/28/2015 and 12/08/2014 PARENCHYMAL PATTERN: (VD) - The breasts demonstrate extremely dense parenchyma bilaterally, limiting the sensitivity of mammography. FINDINGS: No significant interval change. There are no suspicious masses, calcifications, or areas of distortion. Scattered benign-appearing calcifications are stable. IMPRESSION: Negative examination. BI-RADS category 1. RECOMMENDATION: (ANNUAL) - Recommend routine annual screening mammography. BI-RADS CATEGORY: (1) - Negative. STANDARD QUALIFYING STATEMENTS: 1. This examination was not reviewed with the aid of Computer-Aided Detection (CAD). 2. A negative or benign imaging report should not preclude biopsy if clinically suspicious findings are present. 3. Dense breasts may obscure an underlying neoplasm. 4. This examination was reviewed without the aid of 3D breast imaging (tomosynthesis).
== END 2019-07-29 10:53 | disposition home or self-care (01) ==
LOC: DI.N 10:52
DX: Z12.31 Encounter for screening mammogram for malignant neoplasm of breast (principal)
CPT/HCPCS: 77067

== ENCOUNTER 2020-01-12 08:28 | Day surgery (SDC) | payer MEDICARE ==
[~2020-01-12 08:28] MED LIST: BRIMONIDINE 0.2% OPHTH DROPS 5 ML ONE; BSS/LIDOCAINE/EPINEPHRINE 1 ML SYRINGE ONE; CYCLOPENTOLATE 1% OPHTH DROPS 2 ML ONE; KETOROLAC 0.45% OPHTH DROPS ONE; PHENYLEPHRINE 2.5% OPHTH 2 ML DROPS ONE; PROPARACAINE 0.5% OPHTH DROPS 15 ML ONE; TRIAMCIN/MOXIFLOX OPHTHALMIC 0.6 ML VIAL IO ONE; VANCOMYCIN OPHTHALMI 8MG/0.8ML 8 MG/0.8 ML SYRINGE IO ONE; timoloL maleate 0.5% OPHTH DROPS (10ML) ONE
[2020-01-12] MEDS ORDERED: MIDAZOLAM 2 MG/2 ML VIAL IVP ONE (08:29)
[2020-01-12] MEDS ORDERED: LACTATED RINGERS 500 ML IV ONE (09:00)
[2020-01-12] MEDS ORDERED: KETOROLAC 0.45% OPHTH DROPS RIGHTEYE ONE (09:20)
[2020-01-12] MEDS ORDERED: PROPARACAINE 0.5% OPHTH DROPS 15 ML RIGHTEYE ONE ×2 (09:21→10:28)
[2020-01-12] MEDS ORDERED: CYCLOPENTOLATE 1% OPHTH DROPS 2 ML RIGHTEYE ONE (09:21)
[2020-01-12] MEDS ORDERED: PHENYLEPHRINE 2.5% OPHTH 2 ML DROPS RIGHTEYE ONE (09:22)
--- NOTE | 2020-01-12 09:36 | ANESTHESIA ---
Pre-Anesthesia VS, & Labs - Diagnosis right nuclear cataract - Procedure right cataract extraction, laser assisted, with intraocular lens implant Vital Signs: Temp Pulse Resp BP Pulse Ox 36.5 C 78 16 109/69 99 01/12/20 09:09 01/12/20 09:09 01/12/20 09:09 01/12/20 09:09 01/12/20 09:09 Height 5 ft 4 in Weight (kg) 53.1 kg Body Mass Index 24.3 - NPO >8 hours - Is Patient ?: No Home Medications and Allergies Home Medications: Ambulatory Orders Carbidopa/Levodopa [Rytary ER 36.25 mg-145 mg Cap] 1 each PO TID 01/12/20 Calcium Carbonate 500 mg PO BID 07/23/16 Multivitamin [Theragran] 1 tab PO DAILY 07/23/16 Naproxen Sodium [All Day Pain Relief] 220 mg PO .ASDIRECTED 07/23/16 [place]-3/Dha/Epa/Fish Oil [Fish Oil Conc 1,000 mg Softgel] 1,000 mg PO BID 07/23/16 Vit A/C/E AC/Znox/Cupric Oxide [Eye Vitamin-Minerals Tablet] 1 tab PO DAILY 07/23/16 Carbidopa/Levodopa [Rytary ER 36.25 mg-145 mg Cap] 1 each PO TID 01/12/20 Allergies/Adverse Reactions: Allergies Allergy/AdvReac Type Severity Reaction Status Date / Time Sulfa (Sulfonamide Allergy Hives Verified 01/12/20 09:16 Antibiotics) Anes History & Medical History - Anesthetic History Anesthesia Complications: reports: No previous complications - Medical History Cardiovascular: reports: None Pulmonary: reports: None Gastrointestinal: reports: GERD, Colon polyps Urinary: reports: None Neuro: reports: Parkinson's Musculoskeletal: reports: Osteoarthritis, Osteopenia Endocrine/Autoimmune: reports: None Skin: reports: None Smoking Status: Never smoker Exam General: Alert Dental: WNL Mouth Opening: Greater than 4 Fingerbreadths Mallampati classification: II Thyromental Distance: greater than 6 cm Respiratory: Lungs clear Cardiovascular: Regular rate, Normal S1, Normal S2 Mental/Cognitive Status: Alert/Oriented X3 Plan Anesthesia Type: MAC Consent for Procedure(s) Verified and Reviewed: Yes Code Status: Attempt Resuscitation ASA classification: 2-Mild systemic disease Is this case an emergency?: No
[2020-01-12] MEDS ORDERED: EPINEPHrine 1 MG/ML AMP IVP ONE (10:27)
[2020-01-12] MEDS ORDERED: BRIMONIDINE 0.2% OPHTH DROPS 5 ML OPTH ONE (10:27)
[2020-01-12] MEDS ORDERED: BSS/LIDOCAINE/EPINEPHRINE 1 ML SYRINGE IO ONE (10:28)
[2020-01-12] MEDS ORDERED: TIMOLOL 0.5% OPHTH DROPS OPTH ONE (10:28)
[2020-01-12] MEDS ORDERED: CHONDR SULF/HYALURONATE SYRINGE IO ONE (10:28)
[2020-01-12] MEDS ORDERED: VANCOMYCIN OPHTHALMI 8MG/0.8ML 8 MG/0.8 ML SYRINGE IO ONE (10:29)
[2020-01-12] MEDS ORDERED: TRIAMCIN/MOXIFLOX OPHTHALMIC 0.6 ML VIAL IO ONE (10:29)
[2020-01-12 11:18] VITALS: BP 128/69
--- NOTE | 2020-01-12 12:13 | OPERATIVE REPORT ---
DATE OF SERVICE: 01/12/2020 Physician: Tai Rockwell MD PREOPERATIVE DIAGNOSIS: Visually significant cataract, right eye. This was her first cataract surgery. POSTOPERATIVE DIAGNOSIS: Visually significant cataract, right eye. This was her first cataract surgery. OPERATIVE PROCEDURE: Phacoemulsification with posterior chamber intraocular lens implant, right eye with a toric IOL and laser assist. SURGEON: Tai Rockwell MD ANESTHESIA: Monitored anesthesia care. COMPLICATIONS: None. OPERATIVE INDICATIONS: This is a 69-year-old woman with progressive vision loss in the right eye due to 3+ nuclear sclerotic cataract. Best corrected visual acuity was 20/30 with glare to 20/500 in the right eye. Indications for surgery are overall decrease in vision, difficulty seeing words on a computer screen, difficulty reading, difficulty seeing words, closed or game scores on TV, difficulty seeing street signs, difficulty driving at night because of low light or at night, difficulty driving at night because headlights from other vehicles, and difficulty with glare or bright lights in any situation. She was consented at length concerning risks and benefits of cataract surgery, after which she expressed a desire to proceed with surgery. OPERATIVE PROCEDURE: Patient was taken to OR #3 and placed under monitored anesthesia care. A surgical timeout was conducted confirming correct patient, correct procedure, and correct surgical site. She was placed under the LenSx laser and her eye docked to the laser interface. The laser performed the capsulotomy, lens softening, phaco wounds and arcuate keratotomy incision. She was then moved to the operating microscope, given topical anesthesia, and prepped and draped in the usual sterile fashion. The eye was entered at the 12 and 9 o'clock positions. Intracameral Shugarcaine was injected into the anterior chamber followed by Viscoat. The capsulorrhexis flap created by the LenSx laser was removed from the anterior chamber. The nucleus was hydrodissected and phacoemulsified. The cortex was evacuated using automated infusion and aspiration. Provisc was injected into the capsular bag and a 23.0 diopter toric intraocular lens was inserted into the bag and rotated to axis 081. Infusion and aspiration was used to evacuate the viscoelastic materials. The eye was inflated to physiologic pressure using balanced salt solution and found to be watertight. The lens was again verified to be at axis 081. Approximately 0.25 mL of a mixture of triamcinolone and moxifloxacin was injected transsclerally into the vitreous in the inferotemporal quadrant. An additional 0.55 mL of a mixture of triamcinolone, moxifloxacin, and vancomycin was injected subconjunctivally in the superior quadrant for infection and inflammation prophylaxis. Wound integrity was checked with a Weck-Mary sponges. The axis of the IOL was again verified to be at 081. Patient was taken from the operating room in good condition and given postoperative instructions. TD: 01/12/2020 11:01 MTDD
== END 2020-01-12 08:29 | disposition home or self-care (01) ==
LOC: SDS 08:28
PROVIDERS: ATTEND Ophthalmology
DX: H25.11 Age-related nuclear cataract, right eye (principal); G20 Parkinson's disease; H91.90 Unspecified hearing loss, unspecified ear; Z79.899 Other long term (current) drug therapy
CPT/HCPCS: 66984; A9270; J3490; V2632; V2787

== ENCOUNTER 2020-05-21 13:40 | Outpatient (CLI) | payer MEDICARE | END 2020-05-21 13:41 | disposition home or self-care (01) | LOC: LAB 13:40 | PROVIDERS: ATTEND Ophthalmology | DX: Z01.812 Encounter for preprocedural laboratory examination (principal); H25.12 Age-related nuclear cataract, left eye; Z20.828 Contact with and (suspected) exposure to other viral communicable diseases | CPT/HCPCS: 81599 ==

== ENCOUNTER 2020-05-24 06:14 | Day surgery (SDC) | payer MEDICARE ==
[2020-05-24] MEDS ORDERED: MIDAZOLAM 2 MG/2 ML VIAL IVP ONE (06:15)
[2020-05-24] MEDS ORDERED: KETOROLAC 0.45% OPHTH DROPS ONE ×2 (06:22→06:23)
[2020-05-24] MEDS ORDERED: PHENYLEPHRINE 2.5% OPHTH 2 ML DROPS ONE (06:23)
[2020-05-24] MEDS ORDERED: CYCLOPENTOLATE 1% OPHTH DROPS 2 ML ONE (06:24)
[2020-05-24] MEDS ORDERED: PROPARACAINE 0.5% OPHTH DROPS 15 ML ONE (06:24)
[2020-05-24] MEDS ORDERED: LACTATED RINGERS 500 ML IV ONE ×2 (06:30→08:14)
[2020-05-24] MEDS ORDERED: timoloL maleate 0.5% OPHTH DROPS (10ML) ONE (06:52)
[2020-05-24] MEDS ORDERED: TRIAMCIN/MOXIFLOX OPHTHALMIC 0.6 ML VIAL IO ONE ×2 (06:52→07:40)
[2020-05-24] MEDS ORDERED: BRIMONIDINE 0.2% OPHTH DROPS 5 ML ONE (06:52)
[2020-05-24] MEDS ORDERED: VANCOMYCIN OPHTHALMI 8MG/0.8ML 8 MG/0.8 ML SYRINGE IO ONE ×2 (06:53→07:40)
[2020-05-24] MEDS ORDERED: BSS/LIDOCAINE/EPINEPHRINE 1 ML SYRINGE ONE (06:53)
[2020-05-24] MEDS ORDERED: EPINEPHrine 1 MG/ML AMP ONE (07:01)
--- NOTE | 2020-05-24 07:09 | ANESTHESIA ---
Pre-Anesthesia VS, & Labs - Diagnosis L senile combined cataract - Procedure L laser extraction cataract w/IOL Vital Signs: Temp Pulse Resp BP Pulse Ox 36.8 C 70 20 126/70 100 05/24/20 06:43 05/24/20 06:43 05/24/20 06:43 05/24/20 06:43 05/24/20 06:43 Height 5 ft 4 in Weight (kg) 54.2 kg Body Mass Index 24.3 - NPO >8 hours - Is Patient ?: No Home Medications and Allergies Home Medications: Ambulatory Orders Acetaminophen 500 mg PO DAILY 05/23/20 DULoxetine [Cymbalta] 20 mg PO DAILY 05/23/20 Melatonin 5 mg PO DAILY 05/23/20 Calcium Carbonate 500 mg PO BID 07/23/16 Multivitamin [Theragran] 1 tab PO DAILY 07/23/16 [place]-3/Dha/Epa/Fish Oil [Fish Oil Conc 1,000 mg Softgel] 1,000 mg PO BID 07/23/16 Vit A/C/E AC/Znox/Cupric Oxide [Eye Vitamin-Minerals Tablet] 1 tab PO DAILY 07/23/16 Carbidopa/Levodopa [Rytary ER 36.25 mg-145 mg Cap] 1 each PO TID 01/12/20 Acetaminophen 500 mg PO DAILY 05/23/20 DULoxetine [Cymbalta] 20 mg PO DAILY 05/23/20 Melatonin 5 mg PO DAILY 05/23/20 Allergies/Adverse Reactions: Allergies Allergy/AdvReac Type Severity Reaction Status Date / Time Sulfa (Sulfonamide Allergy Hives Verified 01/12/20 09:16 Antibiotics) Anes History & Medical History - Anesthetic History Anesthesia Complications: reports: No previous complications Family history of Anesthesia Complications: Denies Family history of Malignant Hyperthermia: Denies - Medical History Cardiovascular: reports: None Pulmonary: reports: None Gastrointestinal: reports: Chronic constipation, Other Urinary: reports: Incontinence Neuro: reports: Parkinson's Musculoskeletal: reports: Osteoarthritis, Chronic back pain Endocrine/Autoimmune: reports: None Skin: reports: None Smoking Status: Never smoker - Surgical History General: Bowel surgery Eyes Ears Nose Throat (EENT): Cataracts Exam General: Alert, Oriented x3, Cooperative Dental: WNL Mouth Opening: Greater than 4 Fingerbreadths Neck Mobility: Normal Mallampati classification: II Thyromental Distance: 4-6 cm Respiratory: Lungs clear, Normal breath sounds, No respiratory distress Cardiovascular: Regular rate Neurological: Normal speech Cognitive Status: Within normal limits Plan Anesthesia Type: MAC Consent for Procedure(s) Verified and Reviewed: Yes Code Status: Attempt Resuscitation ASA classification: 2-Mild systemic disease Is this case an emergency?: No
[2020-05-24] MEDS ORDERED: BSS/LIDOCAINE/EPINEPHRINE 1 ML SYRINGE IO ONE (07:40)
[2020-05-24] MEDS ORDERED: timoloL maleate 0.5% OPHTH DROPS (10ML) LEFTEYE ONE (07:40)
[2020-05-24] MEDS ORDERED: CHONDR SULF/HYALURONATE SYRINGE IO ONE (07:40)
[2020-05-24] MEDS ORDERED: EPINEPHrine 1 MG/ML AMP IVP ONE (07:40)
[2020-05-24] MEDS ORDERED: BRIMONIDINE 0.2% OPHTH DROPS 5 ML OPTH ONE (07:40)
[2020-05-24 08:16] VITALS: BP 149/77
--- NOTE | 2020-05-24 10:18 | OPERATIVE REPORT ---
DATE OF SERVICE: 05/24/2020 Physician: Tai Rockwell MD PREOPERATIVE DIAGNOSIS: Visually significant cataract, left eye. Cataract surgery was performed on the right eye on 01/12/2020. POSTOPERATIVE DIAGNOSIS: Visually significant cataract, left eye. Cataract surgery was performed on the right eye on 01/12/2020. PROCEDURE: Phacoemulsification with posterior chamber intraocular lens implant, left eye with laser assist. SURGEON: Tai Rockwell MD ANESTHESIA: Monitored anesthesia care. COMPLICATIONS: None. OPERATIVE INDICATIONS: This is a 69-year-old woman with progressive vision loss in the left eye due to 3+ nuclear sclerotic cataract. Best corrected visual acuity was 20/25, with glare to 20/100 in the left eye. Indications for surgery are overall decrease in vision, difficulty reading, difficulty seeing words, closed caption or game scores on TV and difficulty with low light or at night. She also has difficulty driving at night because of headlights from other vehicles. She was consented at length concerning risks and benefits of cataract surgery, after which she expressed a desire to proceed with surgery. OPERATIVE PROCEDURE: Patient was taken to OR #3 and placed under monitored anesthesia care. Surgical timeout was conducted confirming correct patient, correct procedure, and correct surgical site. She was placed on the LenSx laser and her eye was docked to the laser interface. The laser performed the capsulotomy, lens softening, phaco wounds and arcuate keratotomy incisions. She was then moved to the operating microscope, given topical anesthesia, and prepped and draped in the usual sterile fashion. The eye was entered at the 6 and 3 o'clock positions. Intracameral Shugarcaine was injected into the anterior chamber, followed by Viscoat. A capsulorrhexis flap created by the LenSx laser was removed from the anterior chamber. The nucleus was hydrodissected and phacoemulsified. The cortex was evacuated using automated infusion and aspiration. Provisc was injected in the capsular bag, and a 22.5 diopter toric intraocular lens was inserted into the bag and rotated to axis 092. Infusion and aspiration was used to evacuate the viscoelastic materials. The eye was inflated to physiologic pressure using balanced salt solution and found to be watertight. Approximately 0.25 mL of a mixture of triamcinolone and moxifloxacin was injected transsclerally into the vitreous in the inferotemporal quadrant. An additional 0.55 mL of a mixture of triamcinolone, moxifloxacin and vancomycin was injected subconjunctivally in the superior quadrant for infection and inflammation prophylaxis. Wound integrity was checked with Weck-Mary sponges and the IOL was verified to be at the correct axis. Patient was taken from the Operating Room in good condition and given postoperative instructions. TD: 05/24/2020 09:40 MTDFab
== END 2020-05-24 06:15 | disposition home or self-care (01) ==
LOC: SDS 06:14
PROVIDERS: ATTEND Ophthalmology
PROC: 08RK3JZ Replacement of Left Lens with Synthetic Substitute, Percutaneous Approach (ICD-10-PCS; principal; 2020-05-24 07:30)
DX: H25.12 Age-related nuclear cataract, left eye (principal); Z98.41 Cataract extraction status, right eye; G20 Parkinson's disease; Z87.891 Personal history of nicotine dependence
CPT/HCPCS: 66984; A9270; J3490; J7120; V2632

== ENCOUNTER 2021-01-10 13:38 | Outpatient (CLI) | payer MEDICARE | END 2021-01-10 13:39 | disposition critical access hospital (66) | LOC: EMS 13:38 | PROVIDERS: ATTEND Emergency Medicine | DX: R47.81 Slurred speech (principal); R53.1 Weakness; R29.810 Facial weakness | CPT/HCPCS: A0425; A0427 ==

== ENCOUNTER 2021-01-10 13:58 | Emergency (ER) | payer MEDICARE ==
[2021-01-10] MEDS ORDERED: SODIUM CHLORIDE 0.9% 1,000 ML IV STA (14:27)
--- NOTE | 2021-01-10 14:30 | ED Physician Documentation ---
History of Present Illness - Stated complaint Stated Complaint: HYPOTENSION - Chief complaint Chief Complaint: Neuro - History obtained from History obtained from: Patient, Family, EMS - History of Present Illness Timing: How many weeks ago Pain level max: 0 Pain level now: 0 - Additonal information Additional information: Patient is a 70-year-old female with a history of Parkinson's disease. Has been getting progressively weaker over the past several weeks. Intermittent difficulty with ambulation. She states that sometimes she has difficulty with speech. Her speech seemed more slurred this morning and yesterday. No other focal neurological deficits. Denies seeing her neurologist or primary care do ctor for several months. She states no changes to her medications that she is aware of. Nothing makes it better or worse. Review of Systems Ten Systems: 10 systems reviewed and negative Constitutional: denies: Fever, Chills Nose: denies: Rhinorrhea / runny nose, Congestion GI: denies: Vomiting, Diarrhea Skin: denies: Rash Musculoskeletal: denies: Neck pain, Back pain Neurologic: denies: Headache PD PAST MEDICAL HISTORY - Past Medical History Cardiovascular: None Respiratory: None Neuro: Parkinson's Endocrine/Autoimmune: None GI: Chronic constipation, Other : Incontinence HEENT: Chronic vision loss Psych: Depression Musculoskeletal: Osteoarthritis, Chronic back pain Derm: None - Past Surgical History Past Surgical History: Yes General: Bowel surgery HEENT: Cataracts - Present Medications Home Medications: Ambulatory Orders Medication Instructions Recorded Confirmed Calcium Carbonate 500 mg PO BID 07/23/16 01/10/21 Multivitamin [Theragran] 1 tab PO DAILY 07/23/16 01/10/21 [place]-3/Dha/Epa/Fish Oil [Fish Oil 1,000 mg PO BID 07/23/16 01/10/21 Conc 1,000 mg Softgel] Vit A/C/E AC/Znox/Cupric Oxide 1 tab PO DAILY 07/23/16 01/10/21 [Eye Vitamin-Minerals Tablet] Carbidopa/Levodopa [Rytary ER 1 each PO TID 01/12/20 01/10/21 36.25 mg-145 mg Cap] Acetaminophen 500 mg PO DAILY PRN 05/23/20 01/10/21 DULoxetine [Cymbalta] 20 mg PO DAILY 05/23/20 01/10/21 Melatonin 5 mg PO DAILY 05/23/20 01/10/21 Carbidopa/Levodopa 25/100 [Sinemet 0.5 tab PO 5XD 01/10/21 01/10/21 25 mg/100 mg] - Allergies Allergies/Adverse Reactions: Allergies Allergy/AdvReac Type Severity Reaction Status Date / Time Sulfa (Sulfonamide Allergy Hives Verified 01/10/21 14:45 Antibiotics) - Social History Does the pt smoke?: No Smoking Status: Never smoker Does the pt drink ETOH?: No Does the pt have substance abuse?: No - Immunizations Immunizations are current?: Yes - POLST Patient has POLST: No PD ED PE NORMAL - Vitals Vital signs reviewed: Yes - General General: Alert and oriented X 3, No acute distress - HEENT HEENT: Atraumatic, PERRL, Ears normal, Moist mucous membranes, Pharynx benign - Neck Neck: Supple, no meningeal sign - Cardiac Cardiac: RRR - Respiratory Respiratory: No respiratory distress, Clear bilaterally - Abdomen Abdomen: Soft, Non tender, Non distended - Derm Derm: Warm and dry - Extremities Extremities: No edema, No calf tenderness / cord - Neuro Neuro: Alert and oriented X 3, ranch rider 2-12 intact, No motor deficit, No sensory deficit, Normal speech - Psych Psych: Normal mood, Normal affect Results - Vitals Vitals: Vital Signs - 24 hr 01/10/21 01/10/21 01/10/21 14:03 14:36 15:18 Temperature 36.3 C L Heart Rate 54 L 58 L 60 Respiratory 16 22 19 Rate Blood Pressure 102/66 119/69 140/80 H O2 Saturation 97 96 96 01/10/21 01/10/21 15:39 17:04 Temperature 36.4 C L Heart Rate 61 71 Respiratory 18 16 Rate Blood Pressure 144/76 H 169/95 H O2 Saturation 99 99 Oxygen O2 Source Room air - Labs Labs: Laboratory Tests 01/10/21 01/10/21 01/10/21 14:39 14:39 15:04 WBC 3.9 L RBC 3.65 L Hgb 11.9 L Hct 35.6 L MCV 97.5 MCH 32.6 H MCHC 33.4 RDW 12.4 Plt Count 174 MPV 9.3 Neut # (Auto) 1.9 Lymph # (Auto) 1.6 [place] # (Auto) 0.4 Eos # (Auto) 0.0 Baso # (Auto) 0.0 Absolute Nucleated RBC 0.00 Nucleated RBC % 0.0 Sodium 138 Potassium 3.9 Chloride 104 Carbon Dioxide 24 Anion Gap 10.0 BUN 19 Creatinine 0.8 Estimated GFR (MDRD) 71 L Glucose 97 Calcium 8.5 Total Bilirubin 0.9 AST 17 ALT < 10 L Alkaline Phosphatase 61 Total Protein 6.1 L Albumin 3.7 Globulin 2.4 Albumin/Globulin Ratio 1.5 Lipase 32 Urine Color YELLOW Urine Clarity CLEAR Urine pH 7.0 Ur Specific Reese 1.020 Urine Protein NEGATIVE Urine Glucose (UA) NEGATIVE Urine Ketones TRACE Urine Occult Blood NEGATIVE Urine Nitrite NEGATIVE Urine Bilirubin NEGATIVE Urine Urobilinogen 0.2 (NORMAL) Ur Leukocyte Esterase NEGATIVE Ur Microscopic Review NOT INDICATED Urine Culture Comments NOT INDICATED - Rads (name of study) head Ct Radiology: Prelim report reviewed, EMP read contemporaneously, See rad report PD MEDICAL DECISION MAKING - ED course Complexity details: reviewed results, re-evaluated patient, considered differential, d/w patient, d/w family ED course: No acute findings on head CT or laboratory testing. Feels better after IV fluids. She appears to be at her normal neurological baseline according to the patient and her family. She is ambulating at her baseline with a walker as well. No evidence of acute stroke. Possible worsening of her Parkinson's disease? No focal neurological deficits or lateralizing signs. Given IV fluids and tolerating p.o. without difficulty. Patient and family counseled regarding signs and symptoms for which I believe and urgent re-evaluation would be necessary. Patient with good understanding of and agreement to plan and is comfortable going home at this time This document was made in part using voice recognition software. While efforts are made to proofread this document, sound alike and grammatical errors may occur. 1. No acute intracranial process. If clinical concern persists, MRI is recommended for further evaluation. 2. Moderate atrophy and chronic microvascular ischemic changes. Departure - Departure Disposition: 01 Home, Self Care Clinical Impression: Dehydration, Parkinson disease Condition: Good Instructions: ED Dehydration Follow-Up: Nola Elkins PA-C [Primary Care Provider] - TWILA LACEY MD [Physician No Access] - Within 1 week Comments: Return if she worsens. There are no acute findings on laboratory testing or CT scans today. Follow-up with her doctor for further care. Discharge Date/Time: 01/10/21 17:29 NIHSS - Time Time: 14:20 - Level of Consciousness Level of consciousness: (0) Alert, Keenly responsive LOC Questions: (0) Answers both Q's correct LOC Commands: (0) Performs both correctly - Gaze Best Gaze: (0) Normal - Visual Visual: (0) No loss - Facial Palsy Facial Palsy: (0) Normal, symmetrical movement - Motor Arms (both separate) Motor Arm (right): (0) No drift Motor Arm (left): (0) No drift - Motor Legs (both separate) Motor Leg (right): (0) No drift Motor Leg (left): (0) No drift - Limb Ataxia Limb Ataxia: (0) Absent - Sensory Sensory: (0) Normal - Best Language Best Language: (0) No aphasia - Dysarthria Dysarthria: (0) Normal - Extinction and Inattention (formally neg Extinction and inattention: (0) No abnormality - Total Score/Results Total Score/Result: 0
[2021-01-10 14:45] LABS: BASOPHILS % (AUTO) 0.8 %; HGB - HEMOGLOBIN 11.9 g/dL (12.0-16.0); LYMPHOCYTES # (AUTO) 1.6 10^3/uL (1.5-3.5); MEAN CORPUSCULAR HEMOGLOBIN 32.6 pg (27.0-31.0); MEAN CORPUSCULAR HGB CONC 33.4 g/dL (32.0-36.0); MEAN CORPUSCULAR VOLUME 97.5 fL (81.0-99.0); MEAN PLATELET VOLUME 9.3 fL (7.9-10.8); MONOCYTES # (AUTO) 0.4 10^3/uL (0.0-1.0); NEUTROPHILS # (AUTO) 1.9 10^3/uL (1.5-6.6); NEUTROPHILS % (AUTO) 48.9 %; PLT - PLATELET COUNT 174 10^3/uL (130-450); RED BLOOD COUNT 3.65 10^6/uL (4.20-5.40); RED CELL DISTRIBUTION WIDTH 12.4 % (12.0-15.0); WHITE BLOOD COUNT 3.9 x10^3/uL (4.8-10.8)
[2021-01-10 15:04] LABS: ALBUMIN 3.7 g/dL (3.2-5.5); ALBUMIN/GLOBULIN RATIO 1.5 (1.0-2.2); ALKALINE PHOSPHATASE 61 IU/L (42-121); ALT ALANINE AMINOTRANSFERASE < 10 IU/L (10-60); AST ASPARTATE AMINOTRANSFERASE 17 IU/L (10-42); BILIRUBIN,TOTAL 0.9 mg/dL (0.2-1.0); BUN - BLOOD UREA NITROGEN 19 mg/dL (6-20); CALCIUM 8.5 mg/dL (8.5-10.3); CARBON DIOXIDE - CO2 24 mmol/L (21-32); CHLORIDE 104 mmol/L (101-111); CREATININE 0.8 mg/dL (0.4-1.0); GLUCOSE 97 mg/dL (70-100); LIPASE 32 U/L (22-51); TOTAL PROTEIN 6.1 g/dL (6.7-8.2)
--- NOTE | 2021-01-10 15:22 | CT Report ---
PROCEDURE: HEAD WO INDICATIONS: speech difficulties for a few weeks, h/o parkinson TECHNIQUE: Noncontrast 4.5 mm thick angled axial sections acquired from the foramen magnum to the vertex. For r adiation dose reduction, the following was used: automated exposure control, adjustment of mA and/or kV according to patient size. COMPARISON: MRI brain 08/24/2018, CT head 05/31/2018 FINDINGS: Image quality: Excellent. The ventricular system and cortical sulci demonstrate atrophy, consistent for patient's stated age. There are areas of hypodensity in the periventricular and subcortical white matter. There is no acut e intra or extra-axial fluid collection. No acute hemorrhage, mass lesion or midline shift. Brainst em is unremarkable. Globes are symmetrical. Sinuses are aerated. Osseous structures are intact. IMPRESSION: 1. No acute intracranial process. If clinical concern persists, MRI is recommended for further evalu ation. 2. Moderate atrophy and chronic microvascular ischemic changes. Reviewed by: Amber Hamilton MD on 01/10/2021 3:21 PM PST Approved by: Amber Hamilton MD on 01/10/2021 3:21 PM PST Station ID: [id number]
[2021-01-10 15:24] LABS: BILIRUBIN,URINE NEGATIVE (NEGATIVE); GLUCOSE, URINE (UA) NEGATIVE (NEGATIVE); KETONES,URINE (UA) TRACE mg/dL (NEGATIVE); LEUKOCYTE ESTERASE, URINE NEGATIVE (NEGATIVE); NITRITE,URINE NEGATIVE (NEGATIVE); OCCULT BLOOD,URINE NEGATIVE (NEGATIVE); PROTEIN,URINE NEGATIVE (NEGATIVE); UROBILINOGEN,URINE 0.2 (NORMAL) E.U./dL (NORMAL)
[2021-01-10 15:25] LABS: CLARITY,URINE CLEAR (CLEAR)
[2021-01-10 17:05] VITALS: BP 169/95
== END 2021-01-10 17:29 | disposition home or self-care (01) ==
LOC: EDUNIT# → ED 13:58
DX: E86.0 Dehydration (principal); G20 Parkinson's disease
CPT/HCPCS: 36415; 51701; 80053; 81001; 81003; 83690; 85025; 87086; 99284

== ENCOUNTER 2021-01-22 16:36 | Outpatient (CLI) | payer MEDICARE ==
--- NOTE | 2021-01-23 09:13 | Ultrasound Report ---
PROCEDURE: Ankle Brachial Index INDICATIONS: COLD FEET TECHNIQUE: Ankle-brachial indices were obtained bilaterally and recorded. COMPARISONS: None. FINDINGS: Right ankle brachial index (KELLY): 1.17 Left ankle brachial index (KELLY): 1.17 Healing potential: Ankle pressures >55 mm Hg in non-diabetics and >80 mm Hg in diabetics are likely to achieve primary h ealing of ischemic foot ulcers. Toe pressures >30 mm Hg are likely to achieve primary healing of ischemic foot ulcers, toe or transme tatarsal amputations. IMPRESSION: Normal KELLY bilaterally as above Reviewed by: Noman Rg MD on 01/23/2021 9:11 AM PST Approved by: Noman Rg MD on 01/23/2021 9:11 AM PST Station ID: [id number]
== END 2021-01-22 16:37 | disposition home or self-care (01) ==
LOC: DI 16:36
PROVIDERS: ATTEND Physician Assistant Medical
DX: R68.89 Other general symptoms and signs (principal)
CPT/HCPCS: 93922

== ENCOUNTER 2021-02-13 14:09 | Outpatient (CLI) | payer MEDICARE ==
--- NOTE | 2021-02-13 17:12 | Ultrasound Report ---
PROCEDURE: Pelvic Complete INDICATIONS: ATROPHIC VAGINITIS PMB TECHNIQUE: Real-time transabdominal scanning was performed of the pelvic organs, with image documentation. COMPARISON: CT abdomen/pelvis 07/23/2016. FINDINGS: Uterus: Uterus is normal in size at 2.0 x 3.4 x 4.9 cm. Endometrium measures 3.5 mm in combined thi ckness. Ovaries: Not visualized bilaterally, due to bowel gas Other: No free pelvic fluid. IMPRESSION: Normal pelvic ultrasound of the uterus and adnexal regions. Nonvisualization of the ovaries likely du e to a combination of postmenopausal possible ovarian atrophy and overlying bowel gas. Reviewed by: Maxwell Bonilla MD on 02/13/2021 5:10 PM PDT Approved by: Maxwell Bonilla MD on 02/13/2021 5:10 PM PDT Station ID: [id number]
== END 2021-02-13 14:10 | disposition home or self-care (01) ==
LOC: DI 14:09
PROVIDERS: ATTEND Family Medicine
DX: N95.2 Postmenopausal atrophic vaginitis (principal); N95.0 Postmenopausal bleeding

== ENCOUNTER 2021-03-28 13:30 | Day surgery (SDC) | payer MEDICARE ==
[2021-03-28] MEDS ORDERED: LACTATED RINGERS 1,000 ML IV ONE ×2 (14:05→15:35)
--- NOTE | 2021-03-28 14:54 | ANESTHESIA ---
Pre-Anesthesia VS, & Labs - Diagnosis history of colon polyps - Procedure colonoscopy Vital Signs: Temp Pulse Resp BP Pulse Ox 36.4 C L 78 16 138/83 H 98 03/28/21 13:47 03/28/21 13:47 03/28/21 13:47 03/28/21 13:47 03/28/21 13:47 Height: 5 ft 4 in Weight (kg): 53 kg Body Mass Index: 20.0 BMI Classification: Healthy weight - NPO >8 hours - Is Patient ?: No Home Medications and Allergies Calcium Carbonate 500 mg PO BID 07/23/16 Multivitamin [Theragran] 1 tab PO DAILY 07/23/16 [place]-3/Dha/Epa/Fish Oil [Fish Oil Conc 1,000 mg Softgel] 1,000 mg PO BID 07/23/16 Vit A/C/E AC/Znox/Cupric Oxide [Eye Vitamin-Minerals Tablet] 1 tab PO DAILY 07/23/16 Carbidopa/Levodopa [Rytary ER 36.25 mg-145 mg Cap] 1 each PO TID 01/12/20 Acetaminophen 500 mg PO DAILY PRN 05/23/20 DULoxetine [Cymbalta] 20 mg PO DAILY 05/23/20 Melatonin 5 mg PO DAILY 05/23/20 Carbidopa/Levodopa 25/100 [Sinemet 25 mg/100 mg] 0.5 tab PO 5XD 01/10/21 Allergies/Adverse Reactions: Allergies Allergy/AdvReac Type Severity Reaction Status Date / Time Sulfa (Sulfonamide Allergy Hives Verified 01/10/21 14:45 Antibiotics) Anes History & Medical History - Anesthetic History Anesthesia Complications: reports: No previous complications - Medical History Cardiovascular: reports: None Pulmonary: reports: None Gastrointestinal: reports: GERD, Colon polyps, Chronic constipation Urinary: reports: Incontinence Neuro: reports: Parkinson's Musculoskeletal: reports: Osteoarthritis, Chronic back pain Endocrine/Autoimmune: reports: None Blood Disorders: reports: None Skin: reports: None Smoking Status: Never smoker Psychosocial: reports: No issues indicated History of Cancer?: No - Surgical History General: reports: Bowel surgery, Colonoscopy, EGD, Other Eyes Ears Nose Throat (EENT): reports: Cataracts Exam General: Alert, Oriented x3, Cooperative, No acute distress Dental: WNL Mouth Openin Fingerbreadth Neck Mobility: Reduced Mallampati classification: III Thyromental Distance: 4-6 cm Mental/Cognitive Status: Alert/Oriented X3, Normal for patient Plan Anesthesia Type: Total IV Consent for Procedure(s) Verified and Reviewed: Yes Code Status: Attempt Resuscitation ASA classification: 3-Severe systemic disease Is this case an emergency?: No
[2021-03-28] MEDS ORDERED: PROPOFOL 200 MG/20 ML VIAL IVP ONE (14:58)
[2021-03-28] MEDS ORDERED: DEXTROSE 5% 1,000 ML IV ONE (15:35)
[2021-03-28 15:56] VITALS: BP 146/74
--- NOTE | 2021-03-28 16:58 | ANESTHESIA POST OP EVALUATION ---
Anesthesia Post Eval - Post Anesthesia Eval Vitals: Last Vital Signs Temp 36.2 C L 03/28/21 15:55 Pulse 62 03/28/21 15:55 Resp 18 03/28/21 15:55 BP 146/74 H 03/28/21 15:55 Pulse Ox 97 03/28/21 15:55 CV Function Including HR & BP: Stable Pain Control: Satisfactory Nausea & Vomiting: Negative Mental Status: Baseline Respiratory Status: Airway Patent Hydration Status: Satisfactory Anesthesia Complications: None
== END 2021-03-28 13:31 | disposition home or self-care (01) ==
LOC: SDS 13:30
PROVIDERS: ATTEND Surgery
PROC: 0DBL8ZZ Excision of Transverse Colon, Via Natural or Artificial Opening Endoscopic (ICD-10-PCS; principal; 2021-03-28 14:45)
DX: Z12.11 Encounter for screening for malignant neoplasm of colon (principal); D12.3 Benign neoplasm of transverse colon; K57.30 Diverticulosis of large intestine without perforation or abscess without bleeding; K64.8 Other hemorrhoids; K64.4 Residual hemorrhoidal skin tags; K59.09 Other constipation; G20 Parkinson's disease; F32.9 Major depressive disorder, single episode, unspecified; G89.29 Other chronic pain; M54.9 Dorsalgia, unspecified; R32 Unspecified urinary incontinence; Z80.0 Family history of malignant neoplasm of digestive organs; Z79.899 Other long term (current) drug therapy
CPT/HCPCS: 45380; J7120

== ENCOUNTER 2021-09-18 11:06 | Outpatient (CLI) | payer MEDICARE | END 2021-09-18 11:07 | disposition critical access hospital (66) | LOC: EMS 11:06 | DX: R55 Syncope and collapse (principal) | CPT/HCPCS: A0425; A0427 ==

== ENCOUNTER 2021-09-18 11:23 | Emergency (ER) | payer MEDICARE ==
[2021-09-18 11:45] LABS: BASOPHILS % (AUTO) 0.5 %; EOSINOPHILS # (AUTO) 0.1 10^3/uL (0.0-0.7); EOSINOPHILS % (AUTO) 1.4 %; HCT - HEMATOCRIT 38.2 % (37.0-47.0); HGB - HEMOGLOBIN 12.6 g/dL (12.0-16.0); LYMPHOCYTES # (AUTO) 1.5 10^3/uL (1.5-3.5); LYMPHOCYTES % (AUTO) 41.5 %; MEAN CORPUSCULAR HEMOGLOBIN 32.5 pg (27.0-31.0); MEAN CORPUSCULAR VOLUME 98.5 fL (81.0-99.0); MEAN PLATELET VOLUME 9.3 fL (7.9-10.8); MONOCYTES # (AUTO) 0.2 10^3/uL (0.0-1.0); NEUTROPHILS # (AUTO) 1.8 10^3/uL (1.5-6.6); NEUTROPHILS % (AUTO) 50.3 %; PLT - PLATELET COUNT 198 10^3/uL (130-450); RED BLOOD COUNT 3.88 10^6/uL (4.20-5.40); RED CELL DISTRIBUTION WIDTH 12.5 % (12.0-15.0); WHITE BLOOD COUNT 3.6 x10^3/uL (4.8-10.8)
--- NOTE | 2021-09-18 11:53 | ED Physician Documentation ---
History of Present Illness - Stated complaint Stated Complaint: SYNCOPE - Chief complaint Chief Complaint: Cardiac - Additonal information Additional information: 71-year-old female presents the emergency department for evaluation of sudden m otor rigidity while transitioning from a toilet to a walker. She has a history of Parkinson's that her describes as stage V. Patient is typically will chair bound. He states that this morning she was using the toilet for defecation. She had been on the toilet for prolonged period of time. As it often takes her a while to defecate he did feed her a muffin. At 1 point he noticed that the food was still retained in her mouth and he asked her to start chewing it. However she would not and just stared straight ahead. He attempted to stand her up to move her into the wheelchair when she suddenly got very rigid and held onto the side bars. She remained fixated for about 90 seconds. EMS was summoned and on scene she was noted to be normoglycemic but hypotensive with a blood pressure in the 70s though the repeats her blood pressure is typically low normal. Her hypotension improved with 300 mils of saline. 9 patient remembers the full events. She did not lose consciousness. reports a fall 3 days ago at home without loss of consciousness. He also reports a similar event about 1 month ago when helping his transition from the shower. Review of Systems Constitutional: denies: Fever, Chills Eyes: reports: Reviewed and negative Ears: reports: Reviewed and negative Nose: reports: Reviewed and negative Throat: reports: Reviewed and negative Cardiac: reports: Reviewed and negative Respiratory: reports: Reviewed and negative GI: reports: Reviewed and negative : reports: Reviewed and negative Skin: reports: Reviewed and negative Musculoskeletal: reports: Reviewed and negative Neurologic: reports: Generalized weakness, Syncope (questionable seizure vs syncope). denies: Seizure Psychiatric: reports: Reviewed and negative PD PAST MEDICAL HISTORY - Past Medical History Cardiovascular: None Respiratory: None Neuro: Parkinson's Endocrine/Autoimmune: None GI: GERD, Colon polyps, Chronic constipation : Incontinence HEENT: Chronic vision loss, Other Psych: Depression Musculoskeletal: Osteoarthritis, Chronic back pain Derm: None - Past Surgical History Past Surgical History: Yes General: Bowel surgery, Colonoscopy, EGD, Other HEENT: Cataracts - Present Medications Home Medications: Ambulatory Orders Medication Instructions Recorded Confirmed Calcium Carbonate 500 mg PO BID 07/23/16 03/26/21 Multivitamin [Theragran] 1 tab PO DAILY 07/23/16 03/26/21 [place]-3/Dha/Epa/Fish Oil [Fish Oil 1,000 mg PO BID 07/23/16 03/26/21 Conc 1,000 mg Softgel] Vit A/C/E AC/Znox/Cupric Oxide 1 tab PO DAILY 07/23/16 03/26/21 [Eye Vitamin-Minerals Tablet] Carbidopa/Levodopa [Rytary ER 1 each PO TID 01/12/20 03/26/21 36.25 mg-145 mg Cap] Acetaminophen 500 mg PO DAILY PRN 05/23/20 03/26/21 DULoxetine [Cymbalta] 20 mg PO DAILY 05/23/20 03/26/21 Melatonin 5 mg PO DAILY 05/23/20 03/26/21 Carbidopa/Levodopa 25/100 [Sinemet 0.5 tab PO 5XD 01/10/21 03/26/21 25 mg/100 mg] - Allergies Allergies/Adverse Reactions: Allergies Allergy/AdvReac Type Severity Reaction Status Date / Time Sulfa (Sulfonamide Allergy Hives Verified 09/18/21 11:33 Antibiotics) - Social History Does the pt smoke?: No Smoking Status: Never smoker Does the pt drink ETOH?: No Does the pt have substance abuse?: No - Immunizations Immunizations are current?: Yes - POLST Patient has POLST: No PD ED PE EXPANDED - General General: Alert, Well developed/nourished (though thin) - HEENT HEENT: Atraumatic (Healing bruise/abrasion right temporal scalp), Head injury - Neck Neck: Supple w/out meningeal sx. No: Adenopathy - Cardiac Cardiac: Regular Rate, Radial strong equal, Pedal strong equal, Cap refill < 2 sec. No: Murmur Present - Respiratory Respiratory: Clear to ausultation ap. No: Distress, Labored - Abdomen Abdomen: Normal Bowel sounds. No: Tender to palpation - Back Back: Normal exam. No: Vertebral tenderness - Derm Derm: Normal color, Warm and dry - Extremities Extremities: Normal. No: Deformity, Tenderness - Neuro Neuro: Alert and Oriented X 3, CNII-XII intact, Normal speech. No: Normal gait (unable to assess) Results - Vitals Vitals: Vital Signs - 24 hr 09/18/21 09/18/21 11:29 12:29 Temperature 36.5 C Heart Rate 63 60 Heart Rate [ 59 L Sitting] Heart Rate [ 62 Standing] Heart Rate [ 60 Supine] Respiratory 14 20 Rate Blood Pressure 102/66 159/84 H Blood Pressure 156/80 H [Sitting] Blood Pressure 121/74 [Standing] Blood Pressure 159/84 H [Supine] O2 Saturation 98 100 Oxygen O2 Source Nasal cannula - EKG (time done) 1123 Rate: Rate (enter#) (64) Rhythm: NSR [place]: Normal Intervals: Normal [place] QRS: Normal Ischemia: Normal ST segments Compare to prior EKG: Old EKG unavailable Computer interpretation: Agree with computer - Labs Labs: Laboratory Tests 09/18/21 09/18/21 09/18/21 11:40 11:40 11:40 WBC 3.6 L RBC 3.88 L Hgb 12.6 Hct 38.2 MCV 98.5 MCH 32.5 H MCHC 33.0 RDW 12.5 Plt Count 198 MPV 9.3 Neut # (Auto) 1.8 Lymph # (Auto) 1.5 [place] # (Auto) 0.2 Eos # (Auto) 0.1 Baso # (Auto) 0.0 Absolute Nucleated RBC 0.00 Nucleated RBC % 0.0 Sodium 142 Potassium 3.6 Chloride 108 Carbon Dioxide 26 Anion Gap 8.0 BUN 15 Creatinine 0.6 Estimated GFR (MDRD) 98 Glucose 124 H Calcium 8.4 L Total Bilirubin 0.8 AST 16 ALT < 10 L Alkaline Phosphatase 62 Troponin I High Sens 3.9 Total Protein 6.0 L Albumin 3.4 Globulin 2.6 Albumin/Globulin Ratio 1.3 Lipase 30 - Rads (name of study) CT head Radiology: Final report received (no acute intrcranial pathology) CXR Radiology: Final report received (no acute cardiopulmonary pathology) PD MEDICAL DECISION MAKING - ED course Complexity details: reviewed old records, reviewed results, considered differential, d/w patient, d/w family ED course: 71-year-old female presents emergency department for evaluation of sudden onset body rigidity And lack of responsiveness when she was sitting on the toilet for an extended period of time. She does have a history of advanced Parkinson's disease. EMS was summoned and she was noted to be mildly hypotensive in the field which responded normally to fluids. At the time the patient returned to the ER she was at baseline normal mentation without any focal neuro deficits. CT of the head was unremarkable. Screening labs, EKG and chest x-ray were also without acute focal findings. Patient's is concerned that her episode at home may have represented a seizure activity though she had no loss of bowel or bladder function and it did not appear to be focal or unilateral. I suspect that what she has is an advancement of her Parkinson's. I have advised her to have very close follow-up with her primary care provider. She may benefit from further outpatient imaging such as an MRI or return evaluation with her neurologist. Emergent return precautions were discussed for worsening symptoms signs and symptoms of seizure activity. Departure - Departure Disposition: Home, Self Care Clinical Impression: Parkinsons disease Altered mental status Qualifiers: Altered mental status type: unspecified Qualified Code(s): R41.82 - Altered mental status, unspecified Condition: Stable Record reviewed to determine appropriate education?: Yes Follow-Up: Nola Elkins PA-C [Primary Care Provider] - Comments: Lory was seen in the emergency department today after she had an event at home in which her muscles became very rigid and tight and she seemed to stare off into space without responding. As we discussed at the bedside the CT scan of her head was unremarkable. Her screening labs and EKG are all essentially normal. Her vital signs here today have been normal in fact her blood pressure has been higher than her baseline normal. I suspect that the episode at home today was likely related to her Parkinson's. It is important that you discuss this with her primary care doctor and/or neurologist. Further outpatient imaging such as an MRI may be indicated. If at any point you have concern for return of the symptoms, she has any seizure-like activity, or is nonresponsive then please return immediately to the ER for a second evaluation.
[2021-09-18] MEDS ORDERED: SODIUM CHLORIDE 0.9% 1,000 ML IV STA (11:54)
--- NOTE | 2021-09-18 11:56 | XRAY Report ---
PROCEDURE: Chest 1 View X-Ray INDICATIONS: Chest Pain TECHNIQUE: One view of the chest was acquired. COMPARISON: June 01, 2018 FINDINGS: SUPPORT DEVICES: None. LUNGS/PLEURA: No focal consolidation, pleural effusion or space-occupying pneumothorax. MEDIASTINUM: The cardiomediastinal silhouette is within normal limits. BONES/SOFT TISSUES: No acute abnormality. IMPRESSION: 1.No acute cardiopulmonary abnormality. Reviewed by: Calixto Morel MD on 09/18/2021 11:55 AM PDT Approved by: Calixto Morel MD on 09/18/2021 11:55 AM PDT Station ID: [id number]
[2021-09-18 12:10] LABS: ALBUMIN 3.4 g/dL (3.2-5.5); ALBUMIN/GLOBULIN RATIO 1.3 (1.0-2.2); ALKALINE PHOSPHATASE 62 IU/L (42-121); ALT ALANINE AMINOTRANSFERASE < 10 IU/L (10-60); AST ASPARTATE AMINOTRANSFERASE 16 IU/L (10-42); BILIRUBIN,TOTAL 0.8 mg/dL (0.2-1.0); BUN - BLOOD UREA NITROGEN 15 mg/dL (6-20); CALCIUM 8.4 mg/dL (8.5-10.3); CARBON DIOXIDE - CO2 26 mmol/L (21-32); CHLORIDE 108 mmol/L (101-111); CREATININE 0.6 mg/dL (0.4-1.0); GFR - MDRD 98 (>89); GLUCOSE 124 mg/dL (70-100); LIPASE 30 U/L (22-51); POTASSIUM 3.6 mmol/L (3.5-5.0); SODIUM 142 mmol/L (135-145)
--- NOTE | 2021-09-18 12:18 | CT Report ---
PROCEDURE: HEAD WO INDICATIONS: Ground-level fall TECHNIQUE: Noncontrast 4.5 mm thick angled axial sections acquired from the foramen magnum to the vertex. For r adiation dose reduction, the following was used: automated exposure control, adjustment of mA and/or kV according to patient size. COMPARISON: 01/10/2021 FINDINGS: Image quality: Excellent. CSF spaces: Basal cisterns are patent. No extra-axial fluid collections. Ventricles are normal in size and shape. Brain: No midline shift. No intracranial masses or hemorrhage. [place]ista-white matter interface is norm al. Skull and face: Calvarium and visualized facial bones are intact, without suspicious lesions. Sinuses: Visualized sinuses and mastoids are clear. IMPRESSION: No acute intracranial abnormality. Mild global cerebral volume loss and chronic microvas cular ischemic changes as seen on 01/10/2021 comparison. Reviewed by: Giovanni Leggett MD on 09/18/2021 12:17 PM PDT Approved by: Giovanni Leggett MD on 09/18/2021 12:17 PM PDT Station ID: [id number]
[2021-09-18 13:38] VITALS: BP 185/90
== END 2021-09-18 13:42 | disposition home or self-care (01) ==
LOC: EDUNIT# → ED 11:23
DX: G20 Parkinson's disease (principal); R41.82 Altered mental status, unspecified; M62.81 Muscle weakness (generalized); Z99.3 Dependence on wheelchair; I95.9 Hypotension, unspecified
CPT/HCPCS: 36415; 80053; 83690; 84484; 85025; 93005; 99283; 99284

== ENCOUNTER 2021-10-05 15:09 | Outpatient (CLI) | payer MEDICARE | END 2021-10-05 15:10 | disposition critical access hospital (66) | LOC: EMS 15:09 | DX: R55 Syncope and collapse (principal) | CPT/HCPCS: A0425; A0427 ==

== ENCOUNTER 2021-10-05 15:24 | Emergency (ER) | payer MEDICARE ==
--- NOTE | 2021-10-05 15:36 | ED Physician Documentation ---
PD HPI SYNCOPE - Stated complaint Stated Complaint: SYNCOPE - History obtained from History obtained from: Patient, EMS - History of Present Illness Witnessed: Witnessed (by her ) Timing - onset: How many minutes ago (30) Preceding symptoms: Generalized weakness ( was trying to lift patient up from sitting and she seemed to go generally weak, pale, and went limp. He lowered her down to floor, and she was not responsive for few minutes. She maintained breathing, but was pale per . She was rousing and conversant as EMS arrived. No injury.). No: Headache, Chest pain, Abdominal pain Associated symptoms: No: Headache, Chest pain, Nausea / vomiting, Abdominal pain Contributing factors: Recent med change (had Sinemet increased couple weeks ago, but no other changes.), Decreased PO intake, Just stood up. No: Exertion Injury occurred: No: Fell, Head injury, Neck injury Treatment [employer]: Fluids Similar symptoms before: No diagnosis (similar couple weeks ago and a couple weeks prior to that.) Recently seen: Emergency Dept (2 weeks ago with similar episode. Thought related to dehydration.) Review of Systems Constitutional: denies: Fever, Chills Nose: denies: Rhinorrhea / runny nose Throat: denies: Sore throat Cardiac: denies: Chest pain / pressure Respiratory: denies: Dyspnea, Cough GI: denies: Nausea, Vomiting, Diarrhea, Bloody / black stool Skin: denies: Rash, Lesions Neurologic: reports: Generalized weakness (for several months), Syncope. denies: Altered mental status, Headache PD PAST MEDICAL HISTORY - Past Medical History Cardiovascular: None Respiratory: None Neuro: Parkinson's Endocrine/Autoimmune: None GI: GERD, Colon polyps, Chronic constipation : Incontinence HEENT: Chronic vision loss, Other Psych: Depression Musculoskeletal: Osteoarthritis, Chronic back pain Derm: None - Past Surgical History Past Surgical History: Yes General: Bowel surgery, Colonoscopy, EGD, Other HEENT: Cataracts - Present Medications Home Medications: Ambulatory Orders Medication Instructions Recorded Confirmed Calcium Carbonate 500 mg PO BID 07/23/16 10/05/21 Multivitamin [Theragran] 1 tab PO DAILY 07/23/16 10/05/21 [place]-3/Dha/Epa/Fish Oil [Fish Oil 1,000 mg PO BID 07/23/16 10/05/21 Conc 1,000 mg Softgel] Vit A/C/E AC/Znox/Cupric Oxide 1 tab PO DAILY 07/23/16 10/05/21 [Eye Vitamin-Minerals Tablet] Carbidopa/Levodopa [Rytary ER 1 each PO TID 01/12/20 10/05/21 36.25 mg-145 mg Cap] Acetaminophen 500 mg PO DAILY PRN 05/23/20 10/05/21 DULoxetine [Cymbalta] 20 mg PO DAILY 05/23/20 10/05/21 Melatonin 5 mg PO DAILY 05/23/20 10/05/21 Carbidopa/Levodopa 25/100 [Sinemet 0.5 tab PO 5XD 01/10/21 10/05/21 25 mg/100 mg] Gabapentin [Neurontin] 300 mg PO HS 10/05/21 10/05/21 Psyllium [Metamucil] 1 packet PO DAILY 10/05/21 10/05/21 - Allergies Allergies/Adverse Reactions: Allergies Allergy/AdvReac Type Severity Reaction Status Date / Time Sulfa (Sulfonamide Allergy Hives Verified 10/05/21 15:38 Antibiotics) - Social History Does the pt smoke?: No Smoking Status: Never smoker Does the pt drink ETOH?: No Does the pt have substance abuse?: No - Immunizations Immunizations are current?: Yes - POLST Patient has POLST: No PD ED PE NORMAL - Vitals Vital signs reviewed: Yes - General General: Alert and oriented X 3, Well developed/nourished, Other (weak voice but alert and conversant. ) - HEENT HEENT: Atraumatic, Pharynx benign - Neck Neck: Supple, no meningeal sign, No adenopathy - Cardiac Cardiac: RRR, No murmur - Respiratory Respiratory: Clear bilaterally - Abdomen Abdomen: Soft, Non tender - Back Back: No CVA TTP - Derm Derm: Normal color, Warm and dry - Extremities Extremities: No edema, No calf tenderness / cord - Neuro Neuro: Alert and oriented X 3, No motor deficit. No: Normal speech (weak phonation but oriented and appropriate. ) Eye Opening: Spontaneous Motor: Obeys Commands Verbal: Oriented GCS Score: 15 Results - Vitals Vitals: Vital Signs - 24 hr 10/05/21 10/05/21 15:33 17:00 Temperature 36.1 C L Heart Rate 58 L 74 Respiratory 24 18 Rate Blood Pressure 127/73 160/90 H O2 Saturation 100 99 Oxygen O2 Source Room air - Labs Labs: Laboratory Tests 10/05/21 10/05/21 10/05/21 16:01 16:01 16:01 WBC 4.5 L RBC 4.02 L Hgb 13.0 Hct 38.9 MCV 96.8 MCH 32.3 H MCHC 33.4 RDW 12.4 Plt Count 209 MPV 9.1 Neut # (Auto) 2.8 Lymph # (Auto) 1.3 [place] # (Auto) 0.4 Eos # (Auto) 0.0 Baso # (Auto) 0.0 Absolute Nucleated RBC 0.00 Nucleated RBC % 0.0 Sodium 141 Potassium 3.8 Chloride 104 Carbon Dioxide 26 Anion Gap 11.0 BUN 11 Creatinine 0.7 Estimated GFR (MDRD) 82 L Glucose 97 Calcium 9.0 Total Bilirubin 0.9 AST 20 ALT < 10 L Alkaline Phosphatase 72 Troponin I High Sens 3.2 Total Protein 6.6 L Albumin 3.9 Globulin 2.7 Albumin/Globulin Ratio 1.4 Lipase 28 PD MEDICAL DECISION MAKING - ED course Complexity details: reviewed old records, reviewed results, considered differential, d/w patient Departure - Departure Disposition: Home, Self Care Clinical Impression: Postural syncope, Transient hypotension, Parkinson disease Condition: Stable Record reviewed to determine appropriate education?: Yes Instructions: ED Dehydration Follow-Up: Nola Elkins PA-C [Primary Care Provider] - Comments: This sounds likely to be a transient drop in blood pressure related to change in position and underlying under hydration, leading to fainting episode. Encourage frequent fluids of water or other fluids such as flavored fluids of Gatorade or juices or even soft watery fluids such as applesauce etc. Basic electrolytes and blood count are good here. Continue your current medications. Encourage hydration. Follow-up with your primary care. Discharge Date/Time: 10/05/21 17:40
[2021-10-05 16:05] LABS: BASOPHILS % (AUTO) 0.4 %; EOSINOPHILS % (AUTO) 0.7 %; HCT - HEMATOCRIT 38.9 % (37.0-47.0); LYMPHOCYTES # (AUTO) 1.3 10^3/uL (1.5-3.5); LYMPHOCYTES % (AUTO) 28.5 %; MEAN CORPUSCULAR HEMOGLOBIN 32.3 pg (27.0-31.0); MEAN CORPUSCULAR HGB CONC 33.4 g/dL (32.0-36.0); MEAN CORPUSCULAR VOLUME 96.8 fL (81.0-99.0); MEAN PLATELET VOLUME 9.1 fL (7.9-10.8); MONOCYTES # (AUTO) 0.4 10^3/uL (0.0-1.0); MONOCYTES % (AUTO) 8.2 %; NEUTROPHILS # (AUTO) 2.8 10^3/uL (1.5-6.6); PLT - PLATELET COUNT 209 10^3/uL (130-450); RED BLOOD COUNT 4.02 10^6/uL (4.20-5.40); RED CELL DISTRIBUTION WIDTH 12.4 % (12.0-15.0); WHITE BLOOD COUNT 4.5 x10^3/uL (4.8-10.8)
[2021-10-05 16:19] LABS: ALBUMIN 3.9 g/dL (3.2-5.5); ALBUMIN/GLOBULIN RATIO 1.4 (1.0-2.2); ALKALINE PHOSPHATASE 72 IU/L (42-121); ALT ALANINE AMINOTRANSFERASE < 10 IU/L (10-60); AST ASPARTATE AMINOTRANSFERASE 20 IU/L (10-42); BILIRUBIN,TOTAL 0.9 mg/dL (0.2-1.0); BUN - BLOOD UREA NITROGEN 11 mg/dL (6-20); CARBON DIOXIDE - CO2 26 mmol/L (21-32); CHLORIDE 104 mmol/L (101-111); CREATININE 0.7 mg/dL (0.4-1.0); GFR - MDRD 82 (>89); GLUCOSE 97 mg/dL (70-100); LIPASE 28 U/L (22-51); POTASSIUM 3.8 mmol/L (3.5-5.0); SODIUM 141 mmol/L (135-145); TOTAL PROTEIN 6.6 g/dL (6.7-8.2)
[2021-10-05] MEDS ORDERED: SODIUM CHLORIDE 0.9% 500 ML IV STA (16:28)
--- NOTE | 2021-10-05 16:57 | XRAY Report ---
PROCEDURE: Chest 1 View X-Ray INDICATIONS: Chest Pain TECHNIQUE: One view of the chest was acquired. COMPARISON: 09/18/2021 FINDINGS: Surgical changes and devices: None. Lungs and pleura: No pleural effusions or pneumothorax. Lungs are clear. Mediastinum: Mediastinal contours appear normal. Heart size is normal. Bones and chest wall: No suspicious bony lesions. Overlying soft tissues appear unremarkable. IMPRESSION: No acute cardiopulmonary findings Reviewed by: Justin Castañeda MD on 10/05/2021 3:56 PM [facility] Approved by: Justin Castañeda MD on 10/05/2021 3:56 PM [place] Station ID: [id number]
[2021-10-05 22:36] VITALS: BP 160/90
== END 2021-10-05 17:40 | disposition home or self-care (01) ==
LOC: EDBD → EDUNIT# → ED 15:24
DX: R55 Syncope and collapse (principal); I95.89 Other hypotension; G20 Parkinson's disease; H54.7 Unspecified visual loss
CPT/HCPCS: 36415; 80053; 83690; 84484; 85025; 93005; 96360; 99283

== ENCOUNTER 2021-10-10 11:00 | Outpatient (CLI) | payer MEDICARE ==
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
== END 2021-10-10 11:01 | disposition home or self-care (01) ==
LOC: PC 11:00
PROVIDERS: ATTEND Nurse Practitioner Family
DX: Z51.5 Encounter for palliative care (principal); G20 Parkinson's disease; K59.00 Constipation, unspecified; R55 Syncope and collapse; F32.A Depression, unspecified
CPT/HCPCS: 99345

== ENCOUNTER 2021-10-16 15:03 | Emergency (ER) | payer MEDICARE ==
--- NOTE | 2021-10-16 15:40 | ED Physician Documentation ---
History of Present Illness - Stated complaint Stated Complaint: CONSTIPATION - Chief complaint Chief Complaint: Abd Pain - History obtained from History obtained from: Patient, Family - Additonal information Additional information: Is a 71-year-old male presenting to the emergency department with report of 10 days of constipation. Accompanied by who is present at bedside. Patient has known history of Parkinson's disorder and has been his primary research director. Patient denies any abdominal pain, change in diet, blood in stool. They report trying oral laxatives at home with minimal relief. endorses for history of bowel obstruction and expresses concern that his may be having a bowel obstruction at this time however they deny any nausea or vomiting. Review of Systems Constitutional: denies: Fever Eyes: denies: Loss of vision Ears: denies: Loss of hearing Nose: denies: Rhinorrhea / runny nose Throat: denies: Dental pain / toothache Cardiac: denies: Chest pain / pressure Respiratory: denies: Dyspnea GI: reports: Constipation : denies: Dysuria Skin: denies: Rash Musculoskeletal: denies: Neck pain PD PAST MEDICAL HISTORY - Past Medical History Cardiovascular: None Respiratory: None Neuro: Parkinson's Endocrine/Autoimmune: None GI: GERD, Colon polyps, Chronic constipation : Incontinence HEENT: Chronic vision loss, Other Psych: Depression Musculoskeletal: Osteoarthritis, Chronic back pain Derm: None - Past Surgical History Past Surgical History: Yes General: Bowel surgery, Colonoscopy, EGD, Other (+SBO lysis of adhesions 07/2016; 2007 lap Demarco for GERD) HEENT: Cataracts - Present Medications Home Medications: Ambulatory Orders Medication Instructions Recorded Confirmed Calcium Carb/Vitamin D3/Vit K1 1 tab PO DAILY 10/10/21 10/10/21 [Viactiv 650 mg-12.5 Mcg Chew] Carbidopa/Levodopa 25/100 [Sinemet 10/10/21 25 mg/100 mg] Carbidopa/Levodopa ER 50/200 1 tab PO 5XD 10/10/21 10/10/21 [Sinemet Cr 50 mg/200 mg] DULoxetine [Cymbalta] 40 mg PO DAILY 10/10/21 10/10/21 Gabapentin [Neurontin] 300 mg PO BID 10/10/21 10/10/21 Magnesium Hydroxide [Milk of 30 ml PO Q72H PRN 10/10/21 10/10/21 Magnesia] Melatonin 20 mg PO QPM 10/10/21 10/10/21 Multivit-Minerals/Folic Acid 1 tab PO DAILY 10/10/21 10/10/21 [Multivitamin Gummies] [place] 3 And Dha 1 tab PO BID 10/10/21 Vit C/E/Zinc/Lutein/Zeaxanthin 1 tab PO DAILY 10/10/21 10/10/21 [Ocuvite Eye Health Gummies] bisacodyL [Dulcolax] 1 tab PO Q48H 10/10/21 10/10/21 - Allergies Allergies/Adverse Reactions: Allergies Allergy/AdvReac Type Severity Reaction Status Date / Time nitrofurantoin Allergy Rash Verified 10/16/21 15:33 [From Macrobid] Sulfa (Sulfonamide Allergy Hives Verified 10/16/21 15:33 Antibiotics) - Social History Does the pt smoke?: No Smoking Status: Never smoker Does the pt drink ETOH?: No Does the pt have substance abuse?: No - Immunizations Immunizations are current?: Yes - POLST Patient has POLST: No PD ED PE NORMAL - General General: Alert and oriented X 3 - HEENT HEENT: Atraumatic - Neck Neck: Supple, no meningeal sign - Cardiac Cardiac: RRR - Respiratory Respiratory: No respiratory distress - Abdomen Abdomen: Normal bowel sounds, Soft, Non tender, Non distended, No organomegaly - Female Female : Deferred - Rectal Rectal: Deferred, Pt declined - Back Back: No CVA TTP - Derm Derm: Normal color - Extremities Extremities: No deformity, No tenderness to palpate - Neuro Neuro: Alert and oriented X 3, airplane and engine inspector 2-12 intact, Other (Parkinsonism) Results - Vitals Vitals: Vital Signs - 24 hr 10/16/21 10/16/21 10/16/21 15:28 16:05 16:30 Heart Rate 66 58 L 61 Respiratory 15 22 20 Rate Blood Pressure 98/55 L 116/70 134/75 H O2 Saturation 98 99 100 10/16/21 10/16/21 18:31 19:00 Heart Rate 60 66 Respiratory 20 21 Rate Blood Pressure 167/86 H 184/98 H O2 Saturation 97 97 Oxygen O2 Source Room air - Labs Labs: Laboratory Tests 10/16/21 10/16/21 16:15 16:15 WBC 4.2 L RBC 4.20 Hgb 13.6 Hct 40.8 MCV 97.1 MCH 32.4 H MCHC 33.3 RDW 12.4 Plt Count 252 MPV 9.0 Neut # (Auto) 2.0 Lymph # (Auto) 1.9 [place] # (Auto) 0.3 Eos # (Auto) 0.1 Baso # (Auto) 0.0 Absolute Nucleated RBC 0.00 Nucleated RBC % 0.0 Sodium 136 Potassium 3.7 Chloride 99 L Carbon Dioxide 27 Anion Gap 10.0 BUN 13 Creatinine 0.6 Estimated GFR (MDRD) 98 Glucose 90 Calcium 9.3 Total Bilirubin 0.8 AST 20 ALT < 10 L Alkaline Phosphatase 67 Total Protein 7.0 Albumin 3.9 Globulin 3.1 Albumin/Globulin Ratio 1.3 Lipase 30 PD MEDICAL DECISION MAKING - ED course Complexity details: reviewed results, d/w patient, d/w family ED course: Patient is 71-year-old female presenting to the emergency department with decreased stooling x10 days. Known history of chronic constipation. Accompanied by who is present at bedside who is primary research director. Afebrile, hemodynamically stable with benign abdominal exam. Labs obtained demonstrated a stable leukopenia unchanged from baseline. The remainder of her labs are also within normal limits. CT of the abdomen and pelvis was negative for any obstruction and did notice some moderate fecalization however on CT scan there was no indication of fecal impaction or large stool ball at the rectal vault. I communicated all these results directly with the patient and patient's . I recommended some dietary and behavioral changes in order to assist with chronic constipation and encouraged him to continue taking their current bowel regimen and to follow-up with primary care as needed. Departure - Departure Disposition: 01 Home, Self Care Clinical Impression: Constipation Condition: Good Instructions: ED Constipation Comments: Thank you for allowing us to care for you today at [facility]. In the emergency department today your evaluated for any possible life threatening injuries or illness. All of your lab work was within an appropriate and normal limit. The CT scan performed of your abdomen and pelvis did not show any bowel obstruction. There was moderate fecalization throughout but no indications of fecal impaction. I would like you to continue your current medications at home. I also recommend increasing your intake in fluid and healthy fiber full fluids. Please follow-up with your primary care doctor soon as you are able. If it anytime you have any new or worsening symptoms please not hesitate to return to the emergency department. Discharge Date/Time: 10/16/21 19:10
[2021-10-16] MEDS: SODIUM CHLORIDE 0.9% 1,000 ML IV STA (16:20)
[2021-10-16 16:22] LABS: BASOPHILS % (AUTO) 0.5 %; EOSINOPHILS # (AUTO) 0.1 10^3/uL (0.0-0.7); EOSINOPHILS % (AUTO) 1.2 %; HCT - HEMATOCRIT 40.8 % (37.0-47.0); HGB - HEMOGLOBIN 13.6 g/dL (12.0-16.0); LYMPHOCYTES # (AUTO) 1.9 10^3/uL (1.5-3.5); LYMPHOCYTES % (AUTO) 45.3 %; MEAN CORPUSCULAR HEMOGLOBIN 32.4 pg (27.0-31.0); MEAN CORPUSCULAR HGB CONC 33.3 g/dL (32.0-36.0); MEAN CORPUSCULAR VOLUME 97.1 fL (81.0-99.0); MONOCYTES # (AUTO) 0.3 10^3/uL (0.0-1.0); MONOCYTES % (AUTO) 5.9 %; NEUTROPHILS % (AUTO) 46.9 %; PLT - PLATELET COUNT 252 10^3/uL (130-450); RED CELL DISTRIBUTION WIDTH 12.4 % (12.0-15.0); WHITE BLOOD COUNT 4.2 x10^3/uL (4.8-10.8)
[2021-10-16 16:33] LABS: ALBUMIN 3.9 g/dL (3.2-5.5); ALBUMIN/GLOBULIN RATIO 1.3 (1.0-2.2); ALKALINE PHOSPHATASE 67 IU/L (42-121); ALT ALANINE AMINOTRANSFERASE < 10 IU/L (10-60); AST ASPARTATE AMINOTRANSFERASE 20 IU/L (10-42); BILIRUBIN,TOTAL 0.8 mg/dL (0.2-1.0); BUN - BLOOD UREA NITROGEN 13 mg/dL (6-20); CALCIUM 9.3 mg/dL (8.5-10.3); CARBON DIOXIDE - CO2 27 mmol/L (21-32); CHLORIDE 99 mmol/L (101-111); CREATININE 0.6 mg/dL (0.4-1.0); GFR - MDRD 98 (>89); GLUCOSE 90 mg/dL (70-100); LIPASE 30 U/L (22-51); POTASSIUM 3.7 mmol/L (3.5-5.0); SODIUM 136 mmol/L (135-145)
[2021-10-16] MEDS ORDERED: IOVERSOL 320 100 ML VIAL IVP ONE (16:52)
--- NOTE | 2021-10-16 18:15 | CT Report ---
PROCEDURE: CT abdomen and pelvis with contrast INDICATIONS: Abdominal pain, distention CONTRAST: IV CONTRAST: Optiray 320 ml: 100 PO CONTRAST: *NO PO CONTRAST TECHNIQUE: After the administration of intravenous contrast, 5 mm thick sections acquired from the diaphragms to the symphysis. 5 mm thick coronal and sagittal reformats were acquired. For radiation dose reducti on, the following was used: automated exposure control, adjustment of mA and/or kV according to darleen ent size. COMPARISON: 07/23/2016 FINDINGS: Image quality: Excellent. ABDOMEN: Lung bases: Right basilar dependent atelectasis and or infiltrate Solid organs: Liver and spleen are normal in size and enhancement. Gallbladder unremarkable Biliar y system is non dilated. Pancreas enhances normally. No adrenal nodules. Kidneys demonstrate geovanna l size and enhancement, without hydronephrosis. Peritoneum and bowel: Moderate to fecal debris throughout the colon without evidence of obstruction. Incidental fundoplication noted, similar prior exam Nodes and vessels: No retroperitoneal or mesenteric adenopathy by size criteria. Aorta and inferior vena cava are normal in size. Miscellaneous: No ventral hernias. PELVIS: Genitourinary: Bladder wall thickness is normal. Miscellaneous: No inguinal hernias or adenopathy. Bones: No suspicious bony lesions. No vertebral body compression fractures. IMPRESSION: 1. Moderate fecal debris throughout the colon without evidence of obstruction 2. Right basilar pulmonary atelectasis and or infiltrate Reviewed by: Justin Castañeda MD on 10/16/2021 5:14 PM AKST Approved by: Justin Castañeda MD on 10/16/2021 5:14 PM AKST Station ID: [id number]
[2021-10-16] MEDS: IOVERSOL 320 100 ML VIAL IVP ONE (18:39)
[2021-10-16 19:00] VITALS: BP 184/98
== END 2021-10-16 19:10 | disposition home or self-care (01) ==
LOC: ED 15:03
DX: K59.09 Other constipation (principal)
CPT/HCPCS: 36415; 74177; 80053; 83690; 85025; 99284; Q9967

== ENCOUNTER 2021-10-24 08:00 | Outpatient (CLI) | payer MEDICARE ==
[2021-10-24 19:05] LABS: BILIRUBIN,URINE NEGATIVE (NEGATIVE); GLUCOSE, URINE (UA) NEGATIVE (NEGATIVE); KETONES,URINE (UA) NEGATIVE (NEGATIVE); LEUKOCYTE ESTERASE, URINE LARGE (NEGATIVE); NITRITE,URINE NEGATIVE (NEGATIVE); OCCULT BLOOD,URINE TRACE-INTA (NEGATIVE); PROTEIN,URINE NEGATIVE (NEGATIVE); UROBILINOGEN,URINE 0.2 (NORMAL) E.U./dL (NORMAL)
[2021-10-24 19:08] LABS: CLARITY,URINE HAZY (CLEAR)
[2021-10-24 19:37] LABS: AMORPHOUS SEDIMENT,UR Rare /LPF; BACTERIA,URINE Moderate /HPF (None Seen); RBC,URINE 0-5 /HPF (0-5); SQUAMOUS EPITHELIAL CELL,UR FEW Squamous (<= Few)
== END 2021-10-24 23:59 | disposition home or self-care (01) ==
LOC: LAB.WCP 08:00
PROVIDERS: ATTEND Physician Assistant Medical
DX: N39.0 Urinary tract infection, site not specified (principal)
CPT/HCPCS: 81001; 87086

== ENCOUNTER 2021-10-24 14:05 | Outpatient (CLI) | payer MEDICARE ==
--- NOTE | 2021-10-24 15:53 | CONSULTATION NOTE ---
Palliative Care Follow Up - Referral Referring Provider: Nichol Kinney Time of Visit: [id number] Referral setting: Home Referral Reason: Parkinsons' Disease/Advanced Care Planning - Information Sources Records reviewed: Previous records reviewed History/Review of Systems obtained from: Patient, Family (spouse, Rob) Exam limitations: Clinical condition (+Hypophonia and STM impairment) - History of Present Illness Update Brief HPI Update: This is a elmer 71-year-old female who was seen in follow-up today within her home due to advanced Parkinson's disease, constipation and advance care planning with her spouse, Rob present. Provider wore N95 mask. Patient has a longstanding history of chronic constipation. She had an episode of approximately 7 days without a bowel movement and presented to the emergency department on 10/16 due to lack of a bowel movement. She had a CT of the abdomen and pelvis which was negative for obstruction. The spouse had provided Dulcolax, milk of magnesia and prunes without adequate defecation. Spouse also administered a Fleet enema prior to presenting to the emergency department which resulted in nothing.However, since evaluation in the emergency department the patient had a large bowel movement yesterday and then again today. Patient denies any abdominal pain or nausea. She reports some increased urinary frequency without dysuria. And PCP was made aware and has pending urinary specimen results. She does have a history of syncopal episodes due to her underlying Parkinson's disease which was originally diagnosed in 2013. Spouse has been applying compression stockings first thing in the morning to reduce orthostatic hypotension. Unfortunately, the patient had an episode in the last week where she fell out of her wheelchair resulting in a minor scrape to her left eyebrow. Patient is seen out of bed in her wheelchair, well-groomed and alert. No evidence of acute distress. Past Medical History: Past medical history of Parkinson's disease, SBO lysis of adhesions, osteoarthritis, GERD, colon polyps, chronic constipation, osteoarthritis, chronic back pain. Positive Covid19 vaccine. Social History - Living Situation Living arrangement: At home Living Situation: With spouse/s.o. Support System: Patient grew up on [facility] and attended college at [employer]. The patient and her spouse were high school sweetheart and have been for approximately 52 years. They have 3 children, 1 daughter and 2 sons. They have 1 son, who lives on the property but is a long-set key driver and comes and goes based on his schedule. When he is present on the property he is extremely assistive. Has strong support base from friends who provide assistance however, the patient spouse does not like to leave for long periods of time for respite as he does not wish anyone to provide transfers for toileting for the patient and have resulting potential injury. Referral was placed for palliative care volunteer however, due to frequent visitations from friends due to the holidays, this is on hold at the present time. Medications/Allergies - Medications Home Medications: Ambulatory Orders Medication Instructions Recorded Confirmed Calcium Carb/Vitamin D3/Vit K1 1 tab PO DAILY 10/10/21 10/10/21 [Viactiv 650 mg-12.5 Mcg Chew] Carbidopa/Levodopa 25/100 [Sinemet 10/10/21 25 mg/100 mg] Carbidopa/Levodopa ER 50/200 1 tab PO 5XD 10/10/21 10/10/21 [Sinemet Cr 50 mg/200 mg] DULoxetine [Cymbalta] 40 mg PO DAILY 10/10/21 10/10/21 Gabapentin [Neurontin] 300 mg PO BID 10/10/21 10/10/21 Magnesium Hydroxide [Milk of 30 ml PO Q72H PRN 10/10/21 10/10/21 Magnesia] Melatonin 20 mg PO QPM 10/10/21 10/10/21 Multivit-Minerals/Folic Acid 1 tab PO DAILY 10/10/21 10/10/21 [Multivitamin Gummies] [place] 3 And Dha 1 tab PO BID 10/10/21 Vit C/E/Zinc/Lutein/Zeaxanthin 1 tab PO DAILY 10/10/21 10/10/21 [Ocuvite Eye Health Gummies] bisacodyL [Dulcolax] 1 tab PO QPM 10/10/21 10/10/21 - Allergies Allergies/Adverse Reactions: Allergies Allergy/AdvReac Type Severity Reaction Status Date / Time nitrofurantoin Allergy Rash Verified 10/16/21 15:33 [From Macrobid] Sulfa (Sulfonamide Allergy Hives Verified 10/16/21 15:33 Antibiotics) Review of Systems - Constitutional Constitutional: reports: Fatigue (sleeping during the day), Weight stable (weight for most of adult life 120lb; left MAC 22cm 10/10/21). denies: Fever, Poor appetite - Eyes Eyes: reports: Corrective lenses - Ears, Nose & Throat Ears, Nose & Throat: denies: Hearing loss - Cardiovascular Cardiovascular: denies: Edema, Syncope (no episodes from last evaluation) - Respiratory Respiratory: reports: Other (difficulty clearing throat with cough). denies: SOB at rest - Gastrointestinal Gastrointestinal: reports: Constipation (see HPI), Other (No dysphagia during meals.). denies: Abdominal pain, Nausea, Vomiting - Genitourinary Genitourinary: reports: Frequency, Incontinence, Other (At times requires stimulation to begin voiding). denies: Dysuria - Musculoskeletal Musculoskeletal: reports: Stiffness, Assistive devices, Transfer issues - Integumentary Integumentary: denies: Rash - Neurological Neurological: reports: General weakness, Memory problems, Other (soft speech) - Psychiatric Psychiatric: reports: Depression (stablized with duloxetine). denies: Hallucinations - Endocrine Endocrine: reports: Intolerance to cold - All Other Systems All Other Systems: reports: Reviewed and negative (ROS supplemented by spouse, Rob) Physical Exam - Vital Signs Temperature: 37.1 C Pulse Rate: 86 O2 Saturation: 93 (on RA) Blood Pressure: 136/65 - Physical Exam General Appearance: positive: No acute distress, Alert, Other (well groomed, thin) Eyes Bilateral: positive: Other (+corrective lenses) ENT: positive: Other (+significant hypophonia) Neck: positive: Trachea midline Cardiovascular: positive: Regular rate & rhythm Respiratory: positive: No respiratory distress, Breath sounds nml. negative: Rales Abdomen: positive: Non-tender, Soft, Nml bowel sounds. negative: Guarding, Distended Skin: positive: Pallor Extremities: positive: No pedal edema, Other (+right sided ridgity) Neurologic/Psychiatric: positive: Oriented x3, Weakness, Flat affect Palliative Care - POLST Patient has POLST: No Pain: No pain Constipation: Yes - Palliative Care Discussion: Patient has a longstanding history of constipation and was recently seen and evaluated in the emergency department with imaging that was negative for bowel obstruction. Sedentary lifestyle and underlying Parkinson disease are likely contributing factors and will increase bisacodyl tablet to nightly and encourage oral hydration. Both the patient and spouse recognize that the patient is requiring increased assistance especially she is no longer ambulatory and are looking to more planning for the future. However, the patient spouse is typically someone that problem solves in the immediate timeframe that it is needed versus far in advance. Introduced the role of [facility] services today to assist with caregiving options in the future. Also discussed availability of private versus in-home agency caregivers to provide additional respite that would allow the patient spouse to leave more at ease. Given the patient's decline and lack of advance care planning introduced the role of POLST as well as designating an healthcare power of litigation attorney associate today with both the patient and spouse. Provided a handout with hard choices for loving people to review between the patient and spouse. Strongly encouraged to have open communication between patient and spouse regarding what the patient's wishes would be regarding future planning to respect her wishes regarding health management. The present time, the patient reports that she has [place]oh every day when she wakes up and looks forward to seeing her son and spouse. Supportive and empathetic listening provided regarding this. Impression and Recommendations - Palliative Care Impression: This is a elmer 71-year-old female with progressive Parkinson's disease, chronic constipation and cognitive impairment related to her diagnosis of Parkinson's disease. Would benefit from adjustment of her bowel regiment to ensure more adequacy regarding defecation. Palliative care will continue to build rapport, provide care coordination, symptom management and anticipatory guidance with advanced care planning. Recommendations/Counseling Done: 1. Constipation. Chronic. History of SBO lysis of adhesions. Decreased liquid intake contributing. Discussed with spouse offering foods such as fruits and vegetables that have a high liquid content. Increase prunes to daily administration. Increase bisacodyl 5 mg take 1 tablet daily to assist with bowel movements. To administer milk of magnesia 30 mL once every 3 days if no bowel movements. May consider glycerin suppositories in the future to help stimulate given poor rectal tone likely due to Parkinson's disease. 2. History of syncopal episodes. Discussed potential for autonomic dysfunction due to Parkinson's disease contributing. Encourage fluid intake. Continue utilization of compression stockings to be placed first thing in the morning before getting out of bed and removing in the evening before bed. Fall precautions. Patient continues to have her call button to alert within the house. 3. Caregiver burden. Patient spouse has a good support system presently however, wish to prepare for the future when caregiving needs increase and if the patient spouse needs respite from caregiving duties. Discussed caregiving options with agency vs private caregivers. Palliative Care Volunteered offered but at the present time due to the holidays the couple wish this to be on hold as they have frequent visitors. Also discussed [facility] as a resource with caregivers. Spouse declined referral to Senior Services preferring to contact in his own time. 4. Parkinson's disease. Chronic. Progressive. Fall precautions. Continue carbidopa/levodopa as prescribed by neurology. No evidence of dysphagia or hallucinations. Discussed support groups virtually or in person with the patient and spouse for additional support. 5.Advance care planning. Patient presently does not have healthcare power of litigation attorney associate designated and provided blank copy today and reviewed how to move forward with completion. Also reviewed POLST and provided book "Hard Choices for [place] People" and encouraged the patient and spouse to have an open dialogue about the patient's wishes and will continue to explore goals moving forward. Total time spent 55 minutes with greater than 50% of the spent in counseling and coordination of care with the patient and spouse; examination of patient; medication adjustments; symptom management; advance care planning; and anticipatory guidance. Disclaimer: The chart note was formulated using voice recognition technology and unfortunately sound alike errors may occur.
== END 2021-10-24 14:06 | disposition home or self-care (01) ==
LOC: PC 14:05
PROVIDERS: ATTEND Nurse Practitioner Family
DX: Z51.5 Encounter for palliative care (principal); G20 Parkinson's disease; K59.09 Other constipation; R55 Syncope and collapse; Z99.3 Dependence on wheelchair
CPT/HCPCS: 99349

== ENCOUNTER 2021-11-12 12:45 | Outpatient (CLI) | payer MEDICARE ==
--- NOTE | 2021-11-12 15:40 | CONSULTATION NOTE ---
Palliative Care Follow Up - Referral Referring Provider: ARTEM Mahajan Time of Visit: [id number] Referral setting: Home Referral Reason: Change in condition/Parkinsons Disease/Constipation/Advanced Care Planning - Information Sources Records reviewed: Previous records reviewed History/Review of Systems obtained from: Patient Exam limitations: Clinical condition (+Hypophonia and STM impairment) - History of Present Illness Update Brief HPI Update: This is a 71-year-old female who is seen in evaluation today acutely due to change in condition due to concern from her spouse, Rob in the setting advanced Parkinson's disease. Provider wore N95 mask. Patient has a history of syncopal episodes due to her underlying Parkinson's disease which was originally diagnosed in 2013. Beginning yesterday the patient was felt to be stiff and limp at the same time. She was in a catatonic-like state and was staring off into space. The patient had a minimal intake yesterday. She then had a coughing spell with saliva and had productive Phlegm that was triggered with attempting to consume applesauce. I triggered a coughing spell had that expectorating multiple times to expel the food. Patient spouse reports that many of the events beginning yesterday were similar to prior episodes and he expected the patient this morning to be back to her baseline. However, she remained stiff and not able to follow simple commands. She also had an episode of bladder incontinence which is not her usual baseline. The patient's spouse perceives that she is gaining speed with deterioration. Patient has a longstanding history of chronic constipation. She had an episode of approximately 7 days without a bowel movement and presented to the emergency department on 10/16 due to lack of a bowel movement and CT of abdomen was negative for obstruction and she had a bowel movement after multiple bowel medications: fleet, MOM, and dulcolax. Today the patient's spouse gave MOM yesterday and has been giving dulcolax 5mg daily and she has not had a bowel movement in appx 1 week. The patient denies N/V/abdominal pain. Prior to this [facility]'s arrival the patient's spouse administered Sinemet and the patient had significant clinical improvement to her baseline and was engaged and articulate which was not her presentation when the spouse contacted Palliative Care concerned regarding clinical status and decline for hospital evaluation. Spouse reports that her oxygen saturation was at 85% earlier with a normal blood pressure. Her blood pressure tends to go up and down due to her Parkinson's Disease. Patient seen originally in bed then transferred to her wheelchair by her spouse. No visible signs of distress. Past Medical History: Past medical history of Parkinson's disease, SBO lysis of adhesions, osteoarthritis, GERD, colon polyps, chronic constipation, osteoarthritis, chr onic back pain. Positive Covid19 vaccine. Social History - Living Situation Living arrangement: At home Living Situation: With spouse/s.o. Support System: Patient grew up on [address] and attended college at [employer]. The patient and her spouse were high school sweetheart and have been for approximately 52 years. They have 3 children, 1 daughter and 2 sons. They have 1 son, Cristobal, who lives on the property but is a [employer]-ot[employer] company truck driver and comes and goes based on his schedule. When he is present on the property he is extremely assistive. Has referral for palliative care volunteer however on hold until after the holidays. Medications/Allergies - Medications Home Medications: Ambulatory Orders Medication Instructions Recorded Confirmed Calcium Carb/Vitamin D3/Vit K1 1 tab PO DAILY 10/10/21 10/10/21 [Viactiv 650 mg-12.5 Mcg Chew] Carbidopa/Levodopa 25/100 [Sinemet 10/10/21 25 mg/100 mg] Carbidopa/Levodopa ER 50/200 1 tab PO 5XD 10/10/21 10/10/21 [Sinemet Cr 50 mg/200 mg] DULoxetine [Cymbalta] 40 mg PO DAILY 10/10/21 10/10/21 Gabapentin [Neurontin] 300 mg PO BID 10/10/21 10/10/21 Magnesium Hydroxide [Milk of 30 ml PO Q72H PRN 10/10/21 10/10/21 Magnesia] Melatonin 20 mg PO QPM 10/10/21 10/10/21 Multivit-Minerals/Folic Acid 1 tab PO DAILY 10/10/21 10/10/21 [Multivitamin Gummies] Waymart 3 And Dha 1 tab PO BID 10/10/21 Vit C/E/Zinc/Lutein/Zeaxanthin 1 tab PO DAILY 10/10/21 10/10/21 [Ocuvite Eye Health Gummies] bisacodyL [Dulcolax] 2 tab PO QPM 10/10/21 10/10/21 Bisacodyl Supp [Dulcolax Supp] 1 supp DE Q72H 11/12/21 11/12/21 - Allergies Allergies/Adverse Reactions: Allergies Allergy/AdvReac Type Severity Reaction Status Date / Time nitrofurantoin Allergy Rash Verified 10/16/21 15:33 [From Macrobid] Sulfa (Sulfonamide Allergy Hives Verified 10/16/21 15:33 Antibiotics) Review of Systems - Constitutional Constitutional: reports: Fatigue (sleeping during the day), Weight stable (weight for most of adult life 120lb; left MAC 22cm 10/10/21). denies: Fever, Poor appetite - Eyes Eyes: reports: Corrective lenses - Ears, Nose & Throat Ears, Nose & Throat: denies: Dentures - Cardiovascular Cardiovascular: denies: Edema, Lightheadedness - Respiratory Respiratory: reports: Cough (see HPI), Other (difficulty clearing throat with cough). denies: SOB at rest - Gastrointestinal Gastrointestinal: reports: Constipation (see HPI), Poor appetite, Other (No dysphagia during meals with foods but now noted intermittently with fluids.). denies: Abdominal pain, Nausea, Vomiting - Genitourinary Genitourinary: reports: Frequency, Incontinence. denies: Dysuria - Musculoskeletal Musculoskeletal: reports: Stiffness, Assistive devices, Transfer issues - Integumentary Integumentary: denies: Rash - Neurological Neurological: reports: General weakness, Memory problems, Other (soft speech) - Psychiatric Psychiatric: reports: Depression (+duloxetine). denies: Hallucinations - Endocrine Endocrine: reports: Intolerance to cold - All Other Systems All Other Systems: reports: Reviewed and negative (ROS supplemented by spouse, Rob and son, Cristobal) Physical Exam - Vital Signs Temperature: 36.6 C Pulse Rate: 73 O2 Saturation: 91 (on RA) Blood Pressure: 130/77 - Physical Exam General Appearance: positive: No acute distress, Alert, Other (well groomed, thin, resting in bed) Eyes Bilateral: positive: Normal inspection ENT: positive: No signs of dehydration, Other Neck: positive: Trachea midline Cardiovascular: positive: Regular rate & rhythm Respiratory: positive: No respiratory distress, Rhonchi (RLL that clears with cough). negative: Wheezes Abdomen: positive: Non-tender, Soft, Nml bowel sounds (x4 quadrants). negative: Guarding, Distended Skin: positive: Pallor Extremities: positive: No pedal edema, Other (+right sided ridgity) Neurologic/Psychiatric: positive: Oriented x3, Weakness (able to move BUE and BLE against gravity), Flat affect, Other (Able to follow commands; + hypophonia--good projection of voice today compared to previous occasions) Palliative Care - POLST Patient has POLST: No Pain: No pain Nausea: None Anorexia: Moderate (4-6) Dyspnea: None Depression: Mild (1-3) Sleep: Sleeps well Constipation: Yes - Palliative Care Discussion: Patient had in abrupt change in condition in the last 24 hours where she was not responsive, able to follow commands or tracking. This was felt to be similar to prior episodes of the patient had that resolved in a shorter timeframe. However, today it took 24 hours for resolution which has prompted the patient, spouse, and signed to recognize if the patient is getting speed with Deterioration with regards to her overall health in the setting of advanced Parkinson's disease. Introduce concerns regarding the patient having intermittent coughing with liquids and concern for potential aspiration and then leading to pneumonia with all parties present and recognize this risk. Discussed as the patient has further liberated [employer] she would benefit from a hospital bed in order to have elevation of the head of the bed to prevent risk of aspiration as well as introduced the role of GARMENT MANUFACTURER evaluation however, this was declined. Did also introduce utilization of Thick-It and strategies for dysphagia to limit potential risk of aspiration which may potentially lead to an aspiration pneumonia. Discussed in the context that if aspiration pneumonia were to develop that this could be a terminal event given the patient's frailty and advanced Parkinson's disease. The patient was very adamant that she would not want to go to the hospital. In the context of some underlying dysphagia with liquids did introduce the concept of tube feeding however, the patient wishes to explore this further with her family as both of her children will be present for the holidays and they plan to have a family discussion regarding medical decisions moving forward. Presently, the patient has returned to her baseline. Unclear if she had an event such as a TIA that has been subsequently resolved versus underlying autonomic dysfunction related to her Parkinson's disease. The patient was quite clear in her conversation today and expressing her desires and needs. She displayed no evidence of acute distress. In exploring goals did introduce the role of hospice services and what that would look like and when this would take formation in the context of disease progression versus an triggering event. Impression and Recommendations - Palliative Care Impression: This is a elmer 71-year-old female with progressive Parkinson's disease, chronic constipation, cognitive impairment with history of episodes of altered mental status. The patient is now experiencing some potential signs and symptoms of dysphagia with liquids and not with solids and would benefit from GARMENT MANUFACTURER evaluation however, declined by patient and family and therefore will implement Thick-It. She has subsequently returned back to her baseline and was very clear and articulating her healthcare desires today and will continue to tease these out as a family over the holiday. Palliative care will continue to build rapport, provide care coordination, symptom management and anticipatory guidance with advanced care planning. Recommendations/Counseling Done: 1. Altered mental status episodes. Typically last less than 24 hours with syncopal components in the past x 3. Potential for TIA versus autonomic dysfunction due to Parkinson's disease contributing. Patient is returned to her baseline functioning and declines evaluation outside of the home. Encourage fluid intake. Fall precautions. Given the difficulty regarding care when these episodes have occurred recommendation made for obtainment of hospital bed and directed to [facility] for obtainment. We will continue to monitor and mitigate risk as much as possible. 2. Dysphagia. Intermittent with liquids. No evidence with foods. Discussed encouraging sitting upright for liquids and meals. Discussed utilizing gravy to make dry foods moist to eat ease swallowing. Declines GARMENT MANUFACTURER evaluation outside of the home. Discussed risk of aspiration pneumonia and all parties are aware of this risk. Introduced the role of tube feeding placement and advanced dysphagia and patient unclear regarding a firm decision regarding this and wishes to speak to her family over the holidays to tease this out. Did make recommendation for utilization of Thick-It to be used with liquids. Reviewed to trial at a nectar thick consistency and reviewed food administration and provided resources for further referencing. Presently, the patient has some rhonchi to the right lower lobe, is afebrile, and pulse ox is greater than 90%. Discussed with patient, spouse, and son if the patient were to have a fever, shortness of breath or changing to condition to contact palliative care during office hours or PCP/specialist after hours as potential for aspiration and pneumonia and need for treatment with understanding verbalized. Presently no signs and symptoms of aspiration pneumonia. 3. Constipation. Chronic. History of SBO lysis of adhesions. Decreased liquid intake contributing and sedentary lifestyle. Dulcolax suppository administered today and patient had urge to defecate prior to SIMULATION SPECIALIST leaving the home. Given continued persistence of constipation for long length of time between defecation increase this to call 5 mg to take 2 tablets daily. If no bowel movement in 3 days advised to administer milk of magnesia x1 dose and if no bowel movement in 24 hours to administer Dulcolax suppository due to poor rectal tone with Parkinson's contributing. Continue to encourage oral hydration. 4. Parkinson's disease. Chronic. Progressive. Fall precautions. Continue carbidopa/levodopa as prescribed by neurology. No reports of hallucinations. 5. Advanced care planning. Patient does not have healthcare power of civil litigation attorney, living will, or POLST in place. Have provided blank POLST as well as a copy of hard choices for loving people and encourage yet again for the patient and family to have a conversation revolving around end-of-life wishes. Patient today, was very clear and articulating that she did not wish [facility]. She would prefer to remain at home. Did introduce the role of hospice services at length today if the patient has continued further decline and/or an event and it was the patient's wish to not go to the hospital for interventions or life sustaining heroics. Patient's son, Cristobal trejo expresses the desire to honor the patient's wishes if she were not able to speak for herself however, this has not been discussed openly. Patient's children to both be present during this holiday season and the plan is to have an open dialogue between the patient, spouse, son, and daughter regarding goals of care and plan for palliative care provider to complete POLST early and 2021 to have a continued plan in place in case an event were to occur. Total time spent 105 minutes with greater than 50% of the spent in counseling and coordination of care with the patient, spouse, and son; examination of patient; administration of Dulcolax suppository; introduction of goals of care, POLST, and advance care planning; introduction of hospice and hospice philosophy as well as criteria; review of dysphagia and risk of aspiration pneumonia and mitigation of risk with Adaptations; symptom management and anticipatory guidance. Disclaimer: The chart note was formulated using voice recognition technology and unfortunately sound alike errors may occur.
== END 2021-11-12 12:46 | disposition home or self-care (01) ==
LOC: PC 12:45
PROVIDERS: ATTEND Nurse Practitioner Family
DX: Z51.5 Encounter for palliative care (principal); R41.82 Altered mental status, unspecified; G20 Parkinson's disease; R13.10 Dysphagia, unspecified; K59.09 Other constipation; Z79.899 Other long term (current) drug therapy; Z87.19 Personal history of other diseases of the digestive system
CPT/HCPCS: 99350

== ENCOUNTER 2021-11-28 14:15 | Outpatient (CLI) | payer MEDICARE ==
--- NOTE | 2021-11-28 18:55 | CONSULTATION NOTE ---
Palliative Care Follow Up - Referral Referring Provider: ARTEM Lynn Time of Visit: [id number] Referral setting: Home Referral Reason: FTT/Dysphagia/Parkinsons' Disease/Skin Breakdown - Information Sources Records reviewed: Previous records reviewed History/Review of Systems obtained from: Family (spouse, Rob and sonCristobal) Exam limitations: Clinical condition (non-verbal) - History of Present Illness Update Brief HPI Update: This is a 71-year-old female who is seen in evaluation today acutely due to change in condition, lack of oral intake, hypoxia, in the setting of advanced Parkinson's disease with her spouse, Rob and son, Cristobal present. Provider wore N95 mask. The patient has been gradually declining more acutely over the last several weeks. She has had increased difficulty with swallowing over the last few days. The patient spouse has been using Thick-It but not with all liquids. She is not had adequate food intake for the last 3 days. Yesterday she did have fortified boost that the spouse assisted with. Reports coughing intermittently and could not utilize a straw with the sucking motion. Over the last few days the patient spouse has also noticed a appearance of a scab to the coccygeal area and he has been applying topical antibiotic ointment and turning the patient routinely from side to side to prevent further skin breakdown. He has not noted any progression with skin breakdown. Last evening, this [place] attempted to administer oral medications however, the patient was reluctant and would not allow. This morning, the patient's spouse found her extended release carbidopa/levodopa in her mouth. This morning, the patient would not arouse despite stimulation. It took approximately 2 hours for her to open her eyes. Even when opening her eyes, she is now nonverbal and will demonstrate minimal response with facial expressions. Also, over the last 3 to 4 days the patient has been unable to hold her head up sufficiently due to lack of strength. The patient spouse has been taking her blood pressure and pulse ox consistently during the day. Her pulse ox has ranged from 81 to 91% on room air. With this BUSINESS ADMINISTRATION PROGRAM CHAIR was 89%. She is unable to adequately clear her oral secretions. She has been afebrile. At home the last few weeks the patient has also transition to being incontinent of urine which is a change from her previous baseline. The patient is seen in her hospital bed resting on her left side. Her eyes are open and she offered a trace smile to this provider but otherwise, nonverbal and was not following commands. Past Medical History: Past medical history of Parkinson's disease, SBO lysis of adhesions, osteoarthritis, GERD, colon polyps, chronic constipation, osteoarthritis, chronic back pain. Positive Covid19 vaccine. Social History - Living Situation Living arrangement: At home Living Situation: With spouse/s.o. Support System: Patient grew up on [facility] and attended college at [employer]. The patient and her spouse were high school sweetheart and have been for approximately 52 years. They have 3 children, 1 daughter and 2 sons. They have 1 son, Cristobal, who lives on the property but is a long-aircraft engine mechanic overhaul and comes and goes based on his schedule. When he is present on the property he is extremely assistive. Patient's entire family was present over [place]. Rob feels that the patient rallied to be present for the family. Goals of care were discussed with the entire family present to be comfort measures at home. Medications/Allergies - Medications Home Medications: Ambulatory Orders Medication Instructions Recorded Confirmed Magnesium Hydroxide [Milk of 30 ml PO Q72H PRN 10/10/21 11/28/21 Magnesia] Bisacodyl Supp [Dulcolax Supp] 1 supp NJ Q72H 11/12/21 11/28/21 LORazepam [Ativan] 0.5 mg PO Q6H PRN 11/28/21 11/28/21 Morphine Oral Soln [Roxanol] 2.5 mg PO Q4H PRN 11/28/21 11/28/21 - Allergies Allergies/Adverse Reactions: Allergies Allergy/AdvReac Type Severity Reaction Status Date / Time nitrofurantoin Allergy Rash Verified 10/16/21 15:33 [From Macrobid] Sulfa (Sulfonamide Allergy Hives Verified 10/16/21 15:33 Antibiotics) Review of Systems - Constitutional Constitutional: reports: Fatigue (sleeping during the day), Poor appetite, Weight loss (visible weight loss from last evaluation in October 2021; weight for most of adult life 120lb; left MAC 22cm 10/10/21). denies: Fever - Eyes Eyes: reports: Corrective lenses - Ears, Nose & Throat Ears, Nose & Throat: reports: Dry mouth. denies: Dentures - Cardiovascular Cardiovascular: denies: Edema - Respiratory Respiratory: reports: Other (difficulty clearing throat with cough with increased respirations and pulse ox 81-89% on Room Air today) - Gastrointestinal Gastrointestinal: reports: Constipation (long standing history of defecation on 11/27/2021), Diarrhea, Poor appetite (see HPI), Other (noted dysphagia with liquids increased over the last several days and not alert to swallow medication). denies: Abdominal pain, Nausea, Vomiting - Genitourinary Genitourinary: reports: Incontinence. denies: Dysuria - Musculoskeletal Musculoskeletal: reports: Stiffness, Assistive devices, Transfer issues - Integumentary Integumentary: reports: Other (Skin breakdown to sacrum) - Neurological Neurological: reports: General weakness, Memory problems, Other (No longer vocal) - Psychiatric Psychiatric: reports: Depression. denies: Aggitation - Endocrine Endocrine: reports: Intolerance to cold - All Other Systems All Other Systems: reports: Reviewed and negative (ROS supplemented by spouse, Rob and son, Cristobal) Physical Exam - Vital Signs Temperature: 37.1 C Pulse Rate: 73 Respiratory Rate: 21 O2 Saturation: 89 (on RA) Blood Pressure: 115/68 (right wrist) - Physical Exam General Appearance: positive: Mild distress (mild increase in respirations noted), Lethargic, Other (thin, resting in bed) Eyes Bilateral: positive: Normal inspection ENT: positive: Dry mucous membranes (slightly dry) Neck: positive: Trachea midline Cardiovascular: positive: Regular rate & rhythm Respiratory: positive: Other (Upper airway congestion from throat resonate in lungs). negative: No respiratory distress (Increased respirations to 21), Wheezes, Rales Abdomen: positive: Non-tender, Soft, Nml bowel sounds (slightly hypoactive). negative: Distended Skin: positive: Pallor, Pressure wound (Wound that is pear shaped to sacrum with erythema to edges of wound bed and with eschar noted centrally with apperance of demetrice ulcer), Other (Blanchable erythema to left medial knee due to pressure and adivsed spouse to use pillow for skin protection) Extremities: positive: No pedal edema, Other (+ridgity) Neurologic/Psychiatric: positive: Weakness (genrealized), Unintelligible speech (non verbal), Flat affect, Other (not following commands) Palliative Care - POLST Patient has POLST: Yes POLST Status: DNR, Comfort Measures Pain: Comment (Reported discomfort with movement) Drowsiness/Sedation: Severe (7-10) Anorexia: Severe (7-10) Dyspnea: Mild (1-3) Constipation: Managed, Intermittent constipation Performance Status: 1 year ago, the patient was ambulatory and is now bedbound. History of syncopal episodes. Now nonverbal. Urinary and fecal incontinence. No longer able to consume meals. Dysphagia present. PPS 20% - Palliative Care Discussion: The patient has been having an overall decline for several months and over the last few weeks has been declining more significantly. She was having decreased oral intake and over the last 3 to 4 days she has not eaten much at all outside of fortified boost. She is also no longer able to support her trunk or head when sitting upright. Her dysphagia has also increased and today, she is unable to be alert enough to take any of her medications or swallow. There was no known events. This is all occurring in the setting of the patient's advanced Parkinson's disease. The patient's family is familiar with Parkinson's disease as the patient had a first cousin who recently due to a result of her Parkinson's disease. The patient rallied for [place] when her family was all present and goals of care were discussed. In light of the patient's decline over several weeks and significant decline over the few days, the patient's family wishes to focus on comfort measures with a transition to hospice within the home. They do not want the patient to be transferred to the hospital. POLST reintroduced and completed today with the patient's spouse as DN AR with comfort measures and no artificial nutrition by tube. The patient is displaying signs that she is not able to adequately clear her throat after being administered liquids and given lack of alertness lengthy discussion was had with the patient spouse and son to avoid administer any liquids or food if the patient is not alert as well as not to administer any medications to swallow with reduced alertness with understanding verbalized. Discussed that if she is alert and so desires may offer liquids with Thick-It which the patient spouse has obtained and has been utilizing. Given the patient has demonstrated some mild hypoxia requested oxygen to be delivered to the home on 11/29 for comfort measures and reviewed with the patient's family. Given the risk of aspiration would avoid continuation of medications that are not added to her comfort and would only continue comfort medications of morphine concentrate and lorazepam. Impression and Recommendations - Palliative Care Impression: This is a elmer 71-year-old female with progressive and advanced Parkinson's disease with significant decline due to dysphagia as a result of her Parkinson's disease, mild hypoxia, cognitive impairment and chronic constipation. The patient has had a sharp functional decline over the last several days and family wishes to shift to entirely comfort focused care within the home and therefore, will transition to hospice services. She has developed a wound to her sacrum with the appearance of a Demetrice ulcer and will advise on localized skin care with barrier cream and offloading. The patient is at risk for sequential sequelae due to protein calorie malnutrition and her overall frailty. Palliative care will continue to provide care coordination, symptom management and anticipatory guidance until hospice services are established. Recommendations/Counseling Done: 1. Dysphagia in the setting of advanced Parkinson's disease. Patient displaying evidence of dysphagia with liquids and is no longer consuming meals due to her lack of alertness. No longer able to swallow medications. Therefore, will discontinue all medications not contributing to the patient's comfort and to initiate morphine concentrate, lorazepam, and Dulcolax suppository for symptom management moving forward as noted below. Advised the patient spouse that moving forward would focus on oral care to maintain moisture for comfort and to not offer liquids unless the patient is alert and even if doing so to ensure that Thick-It is present to reduce the risk of aspiration with the patient sitting up at 90 degrees. However, given the patient's significant decline it is unlikely that she will be alert enough to receive fluids by mouth. 2. Mild hypoxia in the setting of dysphagia due to advanced Parkinson's disease. Pulse ox for this BUSINESS ADMINISTRATION PROGRAM CHAIR 89% on room air. Patient has difficulty clearing her throat due to dysphagia and Parkinson's disease. Patient spouse obtained a pulse ox as low as 81%. Given the patient's respirations above 20 would recommend administration of MSIR 2.5 mg every 4 hours as needed for pain or shortness of breath with Rx sent to [facility] pharmacy per patient's spouse's request and reviewed administration with the patient's spouse and son. Discussed upon obtainment of MSIR would provide administration of 2.5 mg to ensure comfort. Spouse verbalized understanding. Patient would also benefit from support of supplemental oxygen for comfort at 2 to 4 L via nasal cannula. Oxygen has been requested through [facility] to be delivered on 11/29/2021 with a goal of pulse ox greater than 90%. Discussed with the patient spouse to focus on the patient's comfort and use that as a guide for management of symptoms versus obtainment of pulse ox. 3. Skin breakdown to sacrum. Evidence of eschar centrally. Skin breakdown has the appearance of a Demetrice ulcer. Encourage the patient spouse to continue to turn and reposition the patient every 2 hours to offload and not be directly on her sacrum. The patient is in a hospital bed. She is at risk for further skin breakdown and advised to utilize a pillow between her knees to reduce pressure with understanding verbalized. Advised to begin utilization of barrier cream that was provided at least once daily for skin protection. Discussed given the patient's nutritional state unlikely that this will resolve. 4. Protein calorie malnutrition due to advanced Parkinson's disease and dysphagia. Lack of oral intake over several days. Visible weight loss noted. Last MAC 22 cm 10/10/2021. 5. Advanced care planning. Reviewed POLST with patient spouse and son at length and have elected to be DN AR, comfort measures with no artificial nutrition by tube. The patient's family does not wish her to be transferred to the hospital and wish to focus on comfort measures within the home with a transition to hospice services. Start lorazepam 0.5mg every 6 hours as needed for anxiety and advised to crush. All parties are appropriately grieving in respect to the patient's decline. The patient spouse recognizes that the patient has been a fighter for many years and given recent events she is at peace with this transition towards end-of-life. The plan is for the patient to be cremated and plans have already been in place for [facility]. Supportive and empathetic listening provided to the patient's spouse and son. Total time spent 95 minutes with greater than 50% of the spent in counseling and coordination of care with the patient's spouse and son, Cristobal; examination of patient; review and completion of POLST; review of goals of care and discussion regarding end of life management and symptoms.; Review of hospice services and philosophy; medication management and anticipatory guidance. Disclaimer: The chart note was formulated using voice recognition technology and unfortunately sound alike errors may occur.
== END 2021-11-28 14:16 | disposition home or self-care (01) ==
LOC: PC 14:15
PROVIDERS: ATTEND Nurse Practitioner Family
DX: Z51.5 Encounter for palliative care (principal); R32 Unspecified urinary incontinence; G20 Parkinson's disease; R13.19 Other dysphagia; R09.02 Hypoxemia; E46 Unspecified protein-calorie malnutrition; Z66 Do not resuscitate; K59.09 Other constipation; L89.159 Pressure ulcer of sacral region, unspecified stage; R53.1 Weakness
CPT/HCPCS: 99350

== ENCOUNTER 2021-12-02 08:26 | Outpatient (CLI) | payer MEDICARE | END 2021-12-02 08:27 | disposition E | LOC: EMS 08:26 ==